=== PATIENT | female | born 1990 | race Caucasian/White ===

== ENCOUNTER 2017-11-05 11:03 | Emergency (ER) | payer OTHER ==
[~2017-11-05] VITALS: Ht 160 cm; Wt 65.8 kg
[~2017-11-05 11:03] MED LIST: ACETAMINOPHEN/O1 TAB PO; ATIVAN1 M1 PO; DILAUDID2 MG PO; ESCITALOPRAM OX10 MG PO; FLOMAX(MONOGRA0.4 MG PO; IBUPROFEN800 M1 PO; MIRENA1 EACH; MULTI VITAMINS1 TAB PO; MULTI-DAY VITA1 EACH PO; PERCOCET 325 MG1 TA2 PO; PERCOCET 5-3251 EACH PO; TORADOL10 MG PO; TRAMADOL50 MG PO; VICODIN5-300 PO; ZOFRAN ODT4 M1 SL
[2017-11-05 12:14] LABS: ABSOLUTE BASOPHIL COUNT 0.1 /CUMM (0.0-0.2); ABSOLUTE EOSINOPHIL COUNT 0 /CUMM (0.0-0.7); ABSOLUTE LYMPH COUNT 0.8 /CUMM (1.2-3.4); ABSOLUTE MONOCYTE COUNT 0.4 /CUMM (0.10-0.60); BASOPHIL % 0.7 % (0.0-2.0); EOSINOPHIL % 0.6 % (0-5); HEMATOCRIT 40.3 % (37-47); MEAN CORPUSCULAR HGB 31.2 PG (27.0-31.0); MEAN CORPUSCULAR HGB CONC 34.2 G/DL (33.0-37.0); MEAN CORPUSCULAR VOLUME 91.2 FL (81.0-99.0); MEAN PLATELET VOLUME 9.4 FL (7.4-10.4); PLATELET COUNT 184 /CUMM (130-400); RBC DISTRIBUTION WIDTH 12.7 % (11.5-14.5); RED BLOOD CELL CT 4.42 /CUMM (4.20-5.40); WHITE BLOOD CELL COUNT 8.3 /CUMM (4.8-10.8)
[2017-11-05 12:35] LABS: GRANULOCYTE % 84.7 % (42.2-75.2)
--- NOTE | 2017-11-05 12:46 | ED GENERAL ADULT ---
History of Present Illness General Chief Complaint: Female Urogenital Problems Stated Complaint: KIDNEY STONE PAIN, X 2 DAYS Source: patient Exam Limitations: no limitations Vital Signs & Intake/Output Vital Signs & Intake/Output Vital Signs Date Time Temp Pulse Resp B/P B/P Pulse O2 O2 Flow FiO2 Mean Ox Delivery Rate 11/05 1850 89 20 133/85 97 Room Air 11/05 1712 97.5 88 19 132/72 99 Room Air 11/05 1530 98.2 87 19 134/82 99 Room Air 11/05 1345 97.0 82 20 135/75 100 Room Air 11/05 1107 96.5 96 18 132/94 98 Room Air Allergies Coded Allergies: NO KNOWN ALLERGIES (01/13/16) Triage Note: PT TO ER C/C LEFT SIDED FLANK PAIN X 1 DAY. HX OF KIDNEY STONES. +NAUSEA. PATIENT OF DR. HUANG (CALLED OFFICE, HE IS IN SURGERY TODAY). DORA FUCHS PTA Triage Nurses Notes Reviewed? yes Onset: Gradual Duration: day(s): : No Patient currently breastfeeds: No HPI: Ms Yates ia a 27 y/o lady with a PMH of nephrolithiasis, 5 previous ESWL's and followed by Dr. Huang, anxiety and depression who presents with complaints of progressive (Erik Flores MD) Reconcile Medications Hydrocodone/Acetaminophen ([place] 5-325 Tablet) 5 MG-325 MG TABLET 1-2 TAB PO Q6 pain Ibuprofen 600 MG TABLET 1 TAB PO Q6P PRN PAIN with food Levonorgestrel (Mirena) 1 EACH IUD CONTROL (Reported) Lorazepam 1 MG TABLET 1 TAB PO BID ANXIETY (Reported) Sertraline HCl 50 MG TABLET 1 TAB PO DAILY MENTAL HEALTH (Reported) (Andressa LIRA,Karen) Past History Travel History Traveled to [place] past 21 day No Medical History Neurological: NONE EENT: NONE Cardiovascular: NONE Respiratory: NONE Gastrointestinal: NONE Hepatic: NONE Renal: KIDNEY STONES Musculoskeletal: NONE Psychiatric: anxiety, depression Endocrine: NONE Blood Disorders: NONE Cancer(s): 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 see below for history Family History Hx Contributory? No (Alfreda LIRA,Terry Carmona) Review of Systems Review of Systems Constitutional: Reports: see HPI. EENTM: Reports: see HPI. Respiratory: Reports: no symptoms. Cardiovascular: Reports: no symptoms. GI: Reports: nausea. Genitourinary: Reports: frequency. Musculoskeletal: Reports: back pain. Skin: Reports: no symptoms. Neurological/Psychological: Reports: no symptoms. (Erik Flores MD) Physical Exam Physical Exam General Appearance: alert, comfortable, mild distress Head: atraumatic, normal appearance Eyes: Bilateral: EOMI. Ears, Nose, Throat: normal ENT inspection Respiratory: normal breath sounds, no respiratory distress, lungs clear Cardiovascular: regular rate/rhythm Gastrointestinal: normal bowel sounds, soft, mild tenderness elicited on palpation of the left lower quadrant Extremities: normal range of motion, no edema Skin: no evidence of bruising or rash on the back Core Measures ACS in differential dx? No CVA/TIA Diagnosis: No Sepsis Present: No Sepsis Focused Exam Completed? No (Erik Flores MD) Progress Differential Diagnoses I considered the following diagnoses in my evaluation of the patient: [ Nephrolithiasis, pyelonephritis, UTI] Plan of Care: Orders Procedure Date/time Status URINE 11/05 111 Complete URINALYSIS 11/05 1115 Complete COMPREHENSIVE METABOLIC PANEL 11/05 111 Complete CBC WITHOUT DIFFERENTIAL 11/05 1115 Complete Current Medications Sig/Arden Start time Last Medication Dose Stop Time Status Admin Lorazepam 1 MG ONE ONE 11/05 1815 CAN (Ativan) 11/05 181 Oxycodone/ 1 TAB ONCE ONE 11/05 181 CAN Acetaminophen 11/05 181 (Percocet) Laboratory Tests 11/05/17 1200: Urine Color YEL, Urine Clarity CLEAR, Urine pH 6.5, Ur Specific [place] 1.010, Urine Protein NEG, Urine Ketones NEG, Urine Nitrite NEG, Urine Bilirubin NEG, Urine Urobilinogen 0.2, Ur Leukocyte Esterase NEG, Ur Microscopic EXAM NOT REQUIRED, Urine Hemoglobin NEG, Urine Glucose NEG, Urine Test NEGATIVE 11/05/17 1054: Anion Gap 13, Estimated GFR > 60, BUN/Creatinine Ratio 20.0, Glucose 88, Calcium 9.5, Total Bilirubin 0.4, AST 19, ALT 37, Alkaline Phosphatase 42, Total Protein 6.8, Albumin 4.5, Globulin 2.3, Albumin/Globulin Ratio 2.0, CBC w Diff NO MAN DIFF REQ, RBC 4.42, MCV 91.2, MCH 31.2 H, RDW 12.7, MPV 9.4, Gran % 84.7 H, Lymphocytes % 9.6 L, Monocytes % 4.4, Eosinophils % 0.6, Basophils % 0.7, Absolute Granulocytes 7.0 H, Absolute Lymphocytes 0.8 L, Absolute Monocytes 0.4, Absolute Eosinophils 0, Absolute Basophils 0.1, PUBS MCHC 34.2 Initial ED EKG: none (Erik Flores MD) Differential Diagnoses I considered the following diagnoses in my evaluation of the patient: Comments: 11/05/2017 4:36:45 PM patient signed out to me by resident and Karen Crisostomo MD. Awaiting ultrasonography evaluation of a possible eccentrically placed IUD. 11/05/2017 6:01:39 PM I have updated on her test results. I'm still awaiting the ultrasound report. 11/05/2017 6:18:40 PM the ultrasound report has not posted to either the ebookpie system or PACs. I have obtained a verbal reading of the report via the radiology coordinator: Malpositioning of iud with inferior displacement into lower uterine segment with suspicion of myometrial perforation of one of the struts. uterus and endomet otherwise unremarkable. benign L o cyst. 11/05/2017 6:45:47 PM I have updated on test results. At the suggestion of Dr. Cadet patient will follow up in their office for treatment of the displaced IUD. We have also discussed the possibility of renal colic. (Alfreda LIRA,Terry Carmona) Departure Departure Condition: Stable Referrals: Sandra LIRA,Petra Carmona (PCP/Family) Departure Forms: Customer Survey General Discharge Information (Erik Flores MD) Departure Disposition: HOME OR SELF CARE Clinical Impression Primary Impression: Flank pain Secondary Impressions: IUD complication Qualifiers: Device complication type: mechanical Mechanical complication type: displacement Encounter type: initial encounter Qualified Code: T83.32XA - Displacement of intrauterine contraceptive device, initial encounter Additional Instructions: Ibuprofen 600 mg every 6 hours as needed for her flank or back pain. You may add [place] if necessary. Contact Dr. Cadet's (DUMPLING MACHINE OPERATOR) office tomorrow and arrange for follow-up appointment regarding your IUD. If treatment of the IUD does not resolve your symptoms, please contact your primary care physician for a follow-up appointment. Return if any concerns or sudden worsening. Please note that there might be incidental findings in your evaluation that are unrelated to the current emergency department visit. Please notify your primary care doctor about this emergency department visit in order to obtain and review all of the testing performed so that these incidental findings can be monitored as needed. If you had an x-ray performed, please understand that some fractures may not be seen on the initial set of x-rays. If your symptoms persist you might need a repeat set of x-rays to check for such a fracture. If you had a laceration evaluated, please understand that foreign bodies such as glass or wood may not be visible to the naked eye or on plain x-rays. If the wound becomes red, swollen, increasingly more painful or if there is any drainage from the wound, please have it reevaluated by a physician for the possibility of a retained foreign body. If you're unable to follow up as outlined in the discharge instructions please return to the emergency department. Thank you for choosing the [facility] Emergency Department for your care. It was a pleasure to serve you today. Terry Gant M.D. [facility] Prescriptions: Current Visit Scripts Ibuprofen 1 TAB PO Q6P PRN PAIN #20 TAB with food Hydrocodone/Acetaminophen ([place] 5-325 Tablet) 1-2 TAB PO Q6 #20 TAB (Alfreda LIRA,Terry Carmona) PA/KNITTED GOODS SHAPER Co-Sign Statement Statement: ED Attending supervision documentation- [] I saw and evaluated the patient. I have also reviewed all the pertinent lab results and diagnostic results. I agree with the findings and the plan of care as documented in the PA's/KNITTED GOODS SHAPER's documentation. [X] I have reviewed the ED Record and agree with the PA's/KNITTED GOODS SHAPER's documentation. [] Additions or exceptions (if any) to the PAs/KNITTED GOODS SHAPER's note and plan are summarized below: [] (Andressa LIRA,Karen) Critical Care Note Critical Care Note Critical Care Time: non-applicable (Alfreda LIRA,Terry Carmona)
[2017-11-05] MEDS ORDERED: SERTRALINE HCL50 MG PO (12:49)
[2017-11-05] MEDS ORDERED: LORAZEPAM1 M1 PO (12:49)
--- NOTE | 2017-11-05 14:48 | CT SCAN REPORT ---
EXAMINATION: CT ABDOMEN AND PELVIS WITHOUT CONTRAST CLINICAL INFORMATION: Left flank pain and urinary frequency. COMPARISON: Renal ultrasound dated 10/12/[address] abdomen and pelvis dated 04/24/2016. TECHNIQUE: Multidetector volumetric imaging was performed from the superior aspect of the liver through the pubic symphysis. Sagittal and coronal reformatted images were obtained on the technologist's workstation. DLP: 302.70 mGy-cm FINDINGS: LUNG BASES: The visualized lung bases are unremarkable. LIVER, GALLBLADDER, AND BILIARY TREE: The liver is normal in size, shape, and attenuation. No focal hepatic lesion or biliary ductal dilatation is present. The gallbladder is unremarkable with no evidence of radiopaque gallstones, gallbladder wall thickening, or obvious pericholecystic inflammatory changes. PANCREAS: Unremarkable. SPLEEN: Unremarkable. ADRENAL GLANDS: Unremarkable. KIDNEYS AND URETERS: The kidneys are normal in size, shape, and attenuation. No hydronephrosis, hydroureter, or calculi seen. No perinephric stranding. BLADDER: Unremarkable. GASTROINTESTINAL TRACT: There is mild diverticulosis, without acute diverticulitis. No bowel obstruction, free intraperitoneal air or abscess is seen. There is no focal bowel wall thickening. The vermiform appendix appears normal. ABDOMINAL WALL: There is a small fat-containing umbilical hernia. LYMPH NODES: Normal. VASCULAR: Unremarkable. PELVIC VISCERA: There is an intrauterine device, somewhat eccentrically positioned within the uterus with proximal distal tips approaching the fundal serosal margin. A 2.0 cm left ovarian cyst is seen. No right adnexal mass is seen. OSSEOUS STRUCTURES: Unremarkable. IMPRESSION: 1. An intrauterine device is somewhat eccentrically positioned within the uterus, as detailed. Consider further evaluation with dedicated pelvic sonography to assess for endometrial position. Consider Gynecology evaluation. 2. There is a small left ovarian cyst which as well could be more fully evaluated with dedicated pelvic sonography, if clinically indicated. 3. There is mild diverticulosis, without acute diverticulitis. 4. No urinary calculus or hydronephroureter is seen bilaterally.
--- NOTE | 2017-11-05 18:17 | ULTRASOUND REPORT ---
EXAMINATION: ULTRASOUND OF THE PELVIS CLINICAL INFORMATION: Left lower abdominal and left flank pain. Malposition of IUD with possible perforation. IUD location close to uterine abdomen CT. Ruled out for nephrolithiasis on CT. COMPARISON: CT scan of the abdomen and pelvis dated 11/05/2017 and 04/24/2016. TECHNIQUE: Transabdominal and transvaginal pelvic ultrasound. A transvaginal study was performed in addition to the transabdominal study which did not yield an adequate examination of the uterus and ovaries due to superimposed distended gas-filled loops of bowel. FINDINGS: Uterus: The uterus is retroverted and retroflexed and normal in size and appearance, measuring 6.3 x 3.8 x 5.6 cm. The endometrial stripe thickness is normal, measuring 0.2 cm in thickness. No focal myometrial mass is seen. There is abnormal low positioning of the intrauterine device seen within the lower uterine segment. As seen on the CT scan, there appears to be malposition of the struts of the IUD with suspicion of perforation into the myometrium. This is, however, difficult to verify given the retroverted and retroflexed positioning of the uterus. The cervical length is normal measuring 2.0 cm. Ovaries: The ovaries bilaterally are visualized and appear normal, with the right ovary measuring 4.1 x 1.7 x 2.9 cm (18 mL volume) and the left ovary measuring 3.7 x 2.5 x 3.5 cm (10.5 mL volume). There is a benign-appearing thin-walled cyst in the left ovary, measuring 2.0 x 1.9 x 1.7 cm. A small amount of free fluid is seen adjacent to the right ovary. Other: No adnexal mass seen. IMPRESSION: 1. Malpositioning of the IUD is seen with inferior displacement into the lower uterine segment and with suspicion of myometrial perforation of one of the struts. 2. Uterus and endometrium otherwise unremarkable. 3. Ovaries bilaterally normal. Benign left ovarian cyst is seen.
[2017-11-05 18:50] VITALS: BP 133/85
[2017-11-05] MEDS ORDERED: NORCO 5-325 TA1 EACH PO (18:50)
[2017-11-05] MEDS ORDERED: IBUPROFEN600 M1 PO (18:50)
== END 2017-11-05 18:58 ==
LOC: ERH 11:03
PROVIDERS: Emergency Medicine
DX: T83.84XA Pain due to genitourinary prosthetic devices, implants and grafts, initial encounter (principal); R10.9 Unspecified abdominal pain; X58.XXXA Exposure to other specified factors, initial encounter; Y93.9 Activity, unspecified; Y92.9 Unspecified place or not applicable
CPT/HCPCS: 74176; 81003; 81025; 96361; 96374; 96375; 96376; J2405

== ENCOUNTER → 2017-11-19 | Day surgery (SDC) | payer OTHER ==
[~2017-11-19] VITALS: Ht 160 cm; Wt 61.2 kg
[~2017-11-19] MED LIST changes: +IBUPROFEN600 M1 PO; +LORAZEPAM1 M1 PO; +MULTIVITAMINS1 EAC9 PO; +NORCO 5-325 TA1 EACH PO; +OXYCODONE-ACET1 EACH PO; +SERTRALINE HCL50 MG PO
--- NOTE | 2017-11-27 07:18 | Operative Report ---
Operative/Inv Procedure Report Surgery Date: 11/19/17 Name of Procedure: left renal eswl/flouroscopy Pre-Operative Diagnosis: Left renal stone with colic Post-Operative Diagnosis: Same Estimated Blood Loss: none Surgeon/Stone Breaker: Giacomo Huang MD Anesthesia: moderate sedation Complications: None Operative/Procedure Note Note: The patient was taken to the operating room and placed on the ESWL table in supine position. With the patient awake, timeout was performed to confirm correct identity, procedure, laterality, anesthesia, and other pertinent santana- operative information. After adequate anesthesia, the patient was positioned so that the patient's left flank was positioned over the table cut-out, overlying the dome of the treatment head. Once the patient was adequately sedated, fluoroscopy, as well as Renal ultrasound was used to locate the LEFT renal stone. Renal US confirmed the presence of the stone which measured it to be approximately 12 mm upper pole stone. The stone was visible with fluoroscopy. Renal US revealed, no hydronephrosis, and no solid tumor, and presence of the stone. The position of the stone was optimized by using fluoroscopy in AP and oblique views;placing the stone within the ESWL c-arm crosshairs. Once the stone's position was optimized , the LEFT renal E.S.W.L. was initiated at low energy level. After noting the patient's tolerance to the shockwaves, the intensitiy was ramped up to maximum level. At the end of the procedure, the left renal stone had dissintegrated. Of note, a total of 2500 shockwaves were delivered to the stone. The patient tolerated the ESWL procedures well, was awakened, then taken to recovery in satisfactory condition via stretcher. The patient was dischared home with pain medications, diet orders, and intructions to catch fragments by straining the urine. The patient to to have follow-up renal ultrasound and KUB in 1 to 2 weeks, prior to follow-up visit in my office. He will then proceed with metabolic stone work-up. Discharge Disposition: Same Day Admissions CC: Giacomo Huang MD
== END ==
LOC: STS 04:36
DX: N20.0 Calculus of kidney (principal); Z87.442 Personal history of urinary calculi
CPT/HCPCS: 81025

== ENCOUNTER 2017-12-06 11:28 | Inpatient (IN) | payer OTHER ==
[~2017-12-06] VITALS: Ht 157.5 cm; Wt 65.3 kg
[~2017-12-06 11:28] MED LIST changes: +CIPRO500 M1 PO
--- NOTE | 2017-12-06 12:12 | ED GENERAL ADULT ---
See Addendum History of Present Illness General Chief Complaint: General Adult Stated Complaint: CALLED BACK BY DR SHI Source: patient Exam Limitations: no limitations Vital Signs & Intake/Output Vital Signs & Intake/Output Vital Signs Date Time Temp Pulse Resp B/P B/P Pulse O2 O2 Flow FiO2 Mean Ox Delivery Rate 12/06 1856 99.0 12/06 1704 100.6 113 18 130/86 98 12/06 1557 101.0 95 18 124/78 100 Room Air 12/06 1556 101.0 12/06 1400 100.3 12/06 1309 99.3 12/06 1157 96.0 119 18 144/91 99 Room Air Allergies Coded Allergies: NO KNOWN ALLERGIES (01/13/16) Reconcile Medications Baclofen 10 MG TABLET 1 TAB PO BID MUSCLE RELAXER (Reported) Ibuprofen 800 MG TABLET 1 TAB PO TID PRN PAIN (Reported) Lorazepam 1 MG TABLET 1 TAB PO BID ANXIETY (Reported) Multiple Vitamin (Multivitamins) 1 EACH TABLET 1 TAB PO DAILY SUPPLEMENT ( Reported) Norethindrone-E.estradiol-Iron (Lo Loestrin Fe 1-10 Tablet) 1MG-10(24) TABLET 1 TAB PO DAILY CONTROL (Reported) Ondansetron (Zofran Odt) 4 MG TAB.RAPDIS 1 TAB SL TID PRN nausea Oxycodone HCl/Acetaminophen (Percocet 5-325 MG Tablet) 5 MG-325 MG TABLET 1 TAB PO BID PRN pain Sertraline HCl 50 MG TABLET 1 TAB PO DAILY MENTAL HEALTH (Reported) Triage Note: SEEN HERE LAST PM FOR A KIDNEY INFECTION, WAS CALLED TO COME BACK BY DR. SHI, STATES PAIN IS WORSE IN LEFT KIDNEY, VOMITED THIS AM AFTER TAKING CIPRO. Triage Nurses Notes Reviewed? yes Onset: Abrupt Duration: day(s): Timing: recent history : No Patient currently breastfeeds: No HPI: 12/06/17 12:25 PM Patient was recalled by me for positive blood culture. She had gram-negative rods growing out in her blood. Old note was appreciated from yesterday. See below: 27-year-old female with history of kidney stones for which she is required multiple lithotripsies in the past presents to ER today for evaluation complaining of severe left flank pain rating to left lower quadrant associated with nausea chills subjective fevers and night sweats over the past 1 week any progressing worse. Patient had her last lithotripsy [address] Huang. She states she was on pain medicine however was not until antibiotics. She reports a severe dysuria and urinary urgency frequency. She denies any vaginal bleeding or discharge. Patient also had her Mirena removed 3 weeks ago by her field operations manager. She denies any other abdominal surgeries. No vomiting diarrhea. She is not taken anything for the pain today she went to urgent care who referred her to the ER She went to an urgent care just prior to arrival she had a negative. For now she denies any coughing sore throat chest pain. Contrary to triage note, pts pain is to the left flank, no right flank pain She was recalled today for positive blood cultures. She is complaining of ongoing fever, chills, and is vomiting up roger antibiotics. Past History Travel History Traveled to [place] past 21 day No Medical History Any Pertinent Medical History? 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 No Review of Systems Review of Systems Constitutional: Reports: chills, fever. EENTM: Reports: no symptoms. Respiratory: Denies: short of breath. Cardiovascular: Denies: chest pain. GI: Reports: vomiting. Denies: abdominal pain. Genitourinary: Reports: see HPI. Musculoskeletal: Reports: back pain. Skin: Reports: no symptoms. Neurological/Psychological: Reports: no symptoms. Hematologic/Endocrine: Reports: no symptoms. Immunologic/Allergic: Reports: no symptoms. Physical Exam Physical Exam General Appearance: well developed/nourished, awake, anxious, mild distress Head: atraumatic, normal appearance Eyes: Bilateral: normal appearance, PERRL, EOMI. Ears, Nose, Throat: normal ENT inspection Neck: normal inspection Respiratory: no respiratory distress Cardiovascular: regular rate/rhythm Gastrointestinal: soft, non-tender Back: CVA tenderness (L) Extremities: normal inspection Neurologic/Psych: no motor/sensory deficits, awake, alert, oriented x 3 Skin: intact, normal color, warm/dry Core Measures ACS in differential dx? No CVA/TIA Diagnosis: No Sepsis Present: No Sepsis Focused Exam Completed? No Progress Differential Diagnoses I considered the following diagnoses in my evaluation of the patient: [ Pyelonephritis, renal colic, bacteremia] Plan of Care: Orders Procedure Date/time Status CBC WITHOUT DIFFERENTIAL 12/07 06 Active BASIC ELECTROLYTES PLUS BUN&CR 12/07 06 Active Heart Healthy Diet 12/06 D Active Vital Signs 12/06 1708 Active Teach/Educate 12/06 170 Active Pain Treatment and Response 12/06 170 Active Nutritional Intake, Monitor 12/06 170 Active Isolation 12/06 170 Active Intake & Output 12/06 1708 Active Patient Care Conference 12/06 1708 Active Activity/Ambulation 12/06 1708 Active Lab Add-on Test 12/06 1506 Active ED Holding Orders 12/06 1457 Active Admit to inpatient 12/06 1457 Active Code Status 12/06 1457 Active Pathway - chart 12/06 1452 Active Pathway - chart 12/06 1451 Active Patient Data 12/06 1451 Active Code Status 12/06 1451 Complete Patient Data 12/06 1414 Active Intake & Output 12/06 1411 Active LACTIC ACID 12/06 1229 Complete Saline Lock 12/06 1136 Active CULTURE,URINE 12/06 1136 Active BLOOD CULTURE 12/06 1136 Active URINALYSIS 12/06 1136 Complete COMPREHENSIVE METABOLIC PANEL 12/06 1136 Complete CBC WITHOUT DIFFERENTIAL 12/06 1136 Complete House Staff 12/06 UNK Active VTE Mechanical Prophylaxis 12/06 UNK Active Vital Signs 12/06 UNK Active EKG 12/06 UNK Active Current Medications Sig/Arden Start time Last Medication Dose Stop Time Status Admin Ceftriaxone Sodium 1,000 MG Q24H 12/07 1400 AC (Rocephin) Baclofen 10 MG BID 12/06 2199 AC (Lioresal 10MG Tablet) Lorazepam 1 MG BID 12/06 2199 AC (Ativan) Multivitamins 1 TAB DAILY 12/06 2001 AC Therapeutic (Theragran-M Vitamins Tabs) Sertraline HCl 50 MG DAILY 12/06 2001 AC (Zoloft) Ondansetron HCl 4 MG Q6P PRN 12/06 1530 AC 12/06 (Zofran) 1927 Sodium Chloride 1,000 ML Q10H 12/06 1515 AC 12/06 (Normal Saline 0.9%) 1555 Acetaminophen 650 MG Q6P PRN 12/06 1500 AC 12/06 (Tylenol) 1556 Ketorolac 15 MG Q6P PRN 12/06 1500 AC 12/06 Tromethamine 12/11 1459 2042 (Toradol) Oxycodone/ 1 TAB Q6P PRN 12/06 1500 AC 12/06 Acetaminophen 1926 (Percocet) Heparin Sodium 5,000 UNIT Q8 12/06 1451 AC (Porcine) Laboratory Tests 12/06/17 1229: Anion Gap 11, Estimated GFR > 60, BUN/Creatinine Ratio 15.7, Glucose 69, Lactic Acid 0.8, Calcium 9.0, Total Bilirubin 1.4 H, AST 37 H, ALT 107 H, Alkaline Phosphatase 127 H, Total Protein 6.4, Albumin 3.8, Globulin 2.6, Albumin/ Globulin Ratio 1.5, CBC w Diff NO MAN DIFF REQ, RBC 4.08 L, MCV 91.8, MCH 30.9, MCHC 33.7, RDW 12.6, MPV 9.5, Gran % 79.4 H, Lymphocytes % 9.8 L, Monocytes % 9.8 H, Eosinophils % 0.8, Basophils % 0.2, Absolute Granulocytes 5.4, Absolute Lymphocytes 0.7 L, Absolute Monocytes 0.7 H, Absolute Eosinophils 0.1, Absolute Basophils 0, Urine Color YEL, Urine Clarity HAZY H, Urine pH 6.0, Ur Specific [place] 1.015, Urine Protein TRACE H, Urine Ketones NEG, Urine Nitrite NEG, Urine Bilirubin NEG, Urine Urobilinogen 1.0, Ur Leukocyte Esterase SMALL H , Ur Microscopic SEDIMENT EXAMINED, Urine RBC 3-5, Urine WBC 5-10 H, Ur Epithelial Cells FEW, Urine Bacteria FEW H, Urine Mucus RARE, Urine Hemoglobin SMALL H, Urine Glucose NEG Microbiology 12/06 1336 BLOOD: Blood Culture - RECD 12/06 1228 URINE ROUT: Urine Culture - RECD 12/06 1228 BLOOD: Blood Culture - RECD Initial ED EKG: none Departure Departure Disposition: STILL A PATIENT Condition: Stable Clinical Impression Primary Impression: Bacteremia Referrals: Sandra LIRA,Petra Carmona (PCP/Family) Departure Forms: Customer Survey General Discharge Information Admission Note Spoke With: Kindra LIRA,Brian Documentation of Exam: Documentation of any treatments & extenuating circumstances including Concerns Regarding Discharge (functional status, medication knowledge or non-compliance, living conditions, etc.) that warrant an admission rather than observation: [The patient needs admission for IV antibiotics, IV pain medication, consider urology consultation] Critical Care Note Critical Care Note Critical Care Time: non-applicable
[2017-12-06 12:42] LABS: ABSOLUTE BASOPHIL COUNT 0 /CUMM (0.0-0.2); ABSOLUTE EOSINOPHIL COUNT 0.1 /CUMM (0.0-0.7); ABSOLUTE GRANULOCYTE CT 5.4 /CUMM (1.4-6.5); ABSOLUTE LYMPH COUNT 0.7 /CUMM (1.2-3.4); ABSOLUTE MONOCYTE COUNT 0.7 /CUMM (0.10-0.60); BASOPHIL % 0.2 % (0.0-2.0); EOSINOPHIL % 0.8 % (0-5); GRANULOCYTE % 79.4 % (42.2-75.2); HEMATOCRIT 37.5 % (37-47); MEAN CORPUSCULAR HGB 30.9 PG (27.0-31.0); MEAN CORPUSCULAR HGB CONC 33.7 G/DL (33.0-37.0); MEAN CORPUSCULAR VOLUME 91.8 FL (81.0-99.0); MEAN PLATELET VOLUME 9.5 FL (7.4-10.4); PLATELET COUNT 167 /CUMM (130-400); RBC DISTRIBUTION WIDTH 12.6 % (11.5-14.5); RED BLOOD CELL CT 4.08 /CUMM (4.20-5.40); WHITE BLOOD CELL COUNT 6.8 /CUMM (4.8-10.8)
--- NOTE | 2017-12-06 14:42 | History & Physical ---
Elba LIRA,Nakita 12/06/17 1441: General Information and HPI MD Statement: I have seen and personally examined ELIZABET STACK and documented this H& P. The patient is a 27 year old F who presented with a patient stated chief complaint of []. Source of Information: patient Exam Limitations: no limitations History of Present Illness: Patient is a 27-year-old female with past medical history significant for nephrolithiasis requiring ECSW X 4 times, preeclampsia, anxiety/depression presented with left flank pain, nausea, vomiting, fever, chills for the past 1 week. On 11/05/2017 patient was found to have intrauterine device displacement to lower uterine segment with suspicion of myometrial perforation, subsequently she underwent removal of the IUD. On 11/19/2017 she underwent extracorporal shockwave lithotripsy for renal stones. A week later she started developing left flank pain for which she was given muscle relaxants. In addition to left flank pain she started developing yellowish orange urine which is foul-smelling associated with burning increased frequency. 2 days ago she woke up in the middle of the night with night sweats and fever followed by chills yesterday which prompted her to come to ER. She was hydrated with fluids, provided with antiemetics and antibiotics followed by discharged from ER. Today her blood cultures cultures grew gram-negative rods and she was requested to come back to ER. Today she was nauseous with significant left flank pain. She reports she took one dose of Cipro so far. She threw up today morning, still nauseous. In addition she started passing stones. 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 Home Who Do You Live With? child Services at Home: None Smoking Status: Former Smoker ETOH Use: occasional use Illicit Drug Use: denies illicit drug use Functional Ability ADLs Independent: dressing, eating, toileting, bathing. Ambulation: independent IADLs Independent: shopping, housework, finances, food prep, telephone, transportation , medication admin. Review of Systems Review of Systems Constitutional: Reports: see HPI, malaise, weakness. EENTM: Reports: see HPI. Cardiovascular: Reports: see HPI. Respiratory: Reports: see HPI. GI: Reports: see HPI. Genitourinary: Reports: see HPI, dysuria, frequency, hematuria, pain. Musculoskeletal: Reports: see HPI. Exam & Diagnostic Data Last 24 Hrs of Vital Signs/I&O Vital Signs Date Time Temp Pulse Resp B/P B/P Pulse O2 O2 Flow FiO2 Mean Ox Delivery Rate 12/06 1400 100.3 12/06 1309 99.3 12/06 1157 96.0 119 18 144/91 99 Room Air Intake & Output 12/06 1600 12/06 0800 12/06 0000 Intake Total 1000 Output Total Balance 1000 Intake, IV 1000 Patient 65.317 kg Weight Physical Exam General Appearance Alert, Oriented X3, Cooperative Skin No Rashes, No Breakdown Skin Temp/Moisture Exam: Warm/Dry HEENT Atraumatic, PERRLA, EOMI Neck Supple Cardiovascular Normal S1, Normal S2 Lungs Clear to Auscultation, Normal Air Movement Abdomen Normal Bowel Sounds, Soft, tenderness in the left lower quadrant, CVA tenderness present bilaterally Neurological Normal Gait, Normal Speech, Strength at 5/5 X4 Ext, Normal Tone, Sensation Intact Extremities No Clubbing, No Cyanosis, No Edema Vascular Normal Pulses, Pulses Symmetrical Body Front and Back (Adult) 1) tenderness on palpation Last 24 Hrs of Labs/Gamaliel: Laboratory Tests 12/06/17 1229: Anion Gap 11, Estimated GFR > 60, BUN/Creatinine Ratio 15.7, Glucose 69, Lactic Acid 0.8, Calcium 9.0, Total Bilirubin 1.4 H, AST 37 H, ALT 107 H, Alkaline Phosphatase 127 H, Total Protein 6.4, Albumin 3.8, Globulin 2.6, Albumin/ Globulin Ratio 1.5, CBC w Diff NO MAN DIFF REQ, RBC 4.08 L, MCV 91.8, MCH 30.9, MCHC 33.7, RDW 12.6, MPV 9.5, Gran % 79.4 H, Lymphocytes % 9.8 L, Monocytes % 9.8 H, Eosinophils % 0.8, Basophils % 0.2, Absolute Granulocytes 5.4, Absolute Lymphocytes 0.7 L, Absolute Monocytes 0.7 H, Absolute Eosinophils 0.1, Absolute Basophils 0, Urine Color YEL, Urine Clarity HAZY H, Urine pH 6.0, Ur Specific [place] 1.015, Urine Protein TRACE H, Urine Ketones NEG, Urine Nitrite NEG, Urine Bilirubin NEG, Urine Urobilinogen 1.0, Ur Leukocyte Esterase SMALL H , Ur Microscopic SEDIMENT EXAMINED, Urine RBC 3-5, Urine WBC 5-10 H, Ur Epithelial Cells FEW, Urine Bacteria FEW H, Urine Mucus RARE, Urine Hemoglobin SMALL H, Urine Glucose NEG Microbiology 12/06 1336 BLOOD: Blood Culture - RECD 12/06 122 URINE ROUT: Urine Culture - RECD 12/06 1228 BLOOD: Blood Culture - RECD Assessment/Plan Assessment: Patient is a 27-year-old female with past medical history significant for nephrolithiasis requiring ECSW X 4 times, preeclampsia, anxiety/depression presented with urinary frequency, urgency, fever, nausea, chills yesterday. Discharged with ciprofloxacin after diagnosed with pyelonephritis. She was asked to return to ER today after being found to have Gram negative bacteremia in blood cultures. VS are significant for MAXIMUM TEMPERATURE of 101, tachycardic (1:15), stable blood pressure saturating on room air. Physical examination did show bilateral CVA tenderness with left lower quadrant tenderness. Labs are remarkable for mild transaminitis AST/ALT 37/107, total bilirubin 1.4, normal white count. UA is hazy with positive leukocyte esterase and white count with few bacteria. Blood cultures did show gram-negative rods. CT imaging is significant for left hydronephrosis with periureteral/perinephric edema without any calculi. Differentials Obstructive uropathy resulting in pyelonephritis Stone breakage in the urinary tract resulting in bacterial leak leading to ascending infection and pyelonephritis Alteration in genitourinary anatomical structures resulting in infection Problem list 1. Pyelonephritis 2. Anxiety/depression Pyelonephritis She is a fairly young 27-year-old female with multiple lithotripsies for recurrent stones with strong family history of nephrolithiasis. Evaluated in the past and found to be calcium oxalate stones which were really difficult to treat. Family history of stones did suggest genetic predisposition. For now the stool might have passed and she needs IV antibiotics for this acute bacteremia. * Started IV ceftriaxone * Aggressive IV hydration * Nausea control with IV Zofran - please monitor QTC * Pain control with IV Toradol, morphine * Follow-up sensitivities * She needs outpatient follow-up for stone evaluation with CMP, uric acid, citrate, 24-hour urine studies, magnesium * Dr. Huang was consulted in the ER and agree with no further interventional procedures. Agreeable with current plan. Anxiety/depression We will continue Zoloft 50 mg daily, lorazepam 1 mg twice a day Patient is currently on Lo Loestrin for control which we will hold during her hospitalization DVT prophylaxis Subcutaneous heparin CODE STATUS Full code As Ranked By This Provider Problem List: 1. Renal colic 2. Flank pain 3. Pyelonephritis 4. Bacteremia Core Measures/Misc (07/14) Acute Coronary Syndrome ACS Diagnosis: No Congestive Heart Failure Congestive Heart Failure Diagnosis No Cerebrovascular Accident CVA/TIA Diagnosis: No VTE (View Protocol) VTE Risk Factors Acute Medical Illness No Mechanical VTE Prophylaxis d/t N/A MechProphylax Ordered No VTE Pharm Prophylaxis d/t NA PharmProphylax ordered Sepsis (View protocol) Sepsis Present: No Resident Review Statement Resident Statement: examined this patient, discussed with university intern, agreed with university intern, discussed with family, reviewed EMR data (avail), discussed with nursing , discussed with case mgmt, reviewed images, amended to note Other Findings: as above Brian Arguelles 12/06/17 1506: Attending MD Review Statement Attending Statement Attending MD Statement: examined this patient, discuss w/resident/PA/EMPLOYEE COMMUNICATIONS SPECIALIST, agreed w/resident/PA/EMPLOYEE COMMUNICATIONS SPECIALIST, discussed with family, reviewed EMR data (avail), discussed with nursing, discussed with case mgmt, reviewed images, amended to note Attending Assessment/Plan: 27 o/f with h/o preclampsia comes with intractable nasuea and vomiting , flank pain and being admitted for pyelonephritis with bacteremia for iv antibiotics and inability to take PO. Patient has Temp 100.3. Labs and vitals noted. Patient recieved fluids in ER. Patient is started on iv fluids, iv antibiotics, prn nausea meds, pain control. Urology consult. GI/DVT prophyalxis full code. Plan of care d/w in ER. Terry Huertas DO 12/06/17 9121: General Information and HPI Allergies/Medications Home Med list Baclofen 10 MG TABLET 1 TAB PO BID MUSCLE RELAXER (Reported) Cephalexin (Keflex) 500 MG CAPSULE 1 CAP PO BID urinary tract infection Ibuprofen 800 MG TABLET 1 TAB PO TID PRN PAIN (Reported) Lorazepam 1 MG TABLET 1 TAB PO BID ANXIETY (Reported) Multiple Vitamin (Multivitamins) 1 EACH TABLET 1 TAB PO DAILY SUPPLEMENT ( Reported) Norethindrone-E.estradiol-Iron (Lo Loestrin Fe 1-10 Tablet) 1MG-10(24) TABLET 1 TAB PO DAILY CONTROL (Reported) Ondansetron (Zofran Odt) 4 MG TAB.RAPDIS 1 TAB SL TID PRN nausea Ondansetron (Zofran Odt) 8 MG TAB.RAPDIS 1 TAB PO TID nausea place on top of the tongue where it will dissolve, then swallow Oxycodone HCl/Acetaminophen (Percocet 5-325 MG Tablet) 5 MG-325 MG TABLET 1 TAB PO Q6P PRN PAIN SCALE 7-10 (SEVERE) Sertraline HCl 50 MG TABLET 1 TAB PO DAILY MENTAL HEALTH (Reported)
[2017-12-06] MEDS ORDERED: TAMSULOSIN HCL0.4 M1 PO (15:15)
[2017-12-06] MEDS ORDERED: LO LOESTRIN FE1 EACH PO (15:15)
[2017-12-06] MEDS ORDERED: BACLOFEN10 M1 PO (15:16)
[2017-12-06] MEDS ORDERED: IBUPROFEN800 M1 PO (15:16)
--- NOTE | 2017-12-06 16:31 | Cons- Urology ---
General Information and HPI Consulting Request Date of Consult: 12/06/17 Requested By: Kindra LIRA,Brian Reason for Consult: left pyelonephritis with severe colic Source of Information: patient, family, old records Exam Limitations: no limitations History of Present Illness: 27 yr old with recurrent renal stones. Recent ESWL one month ago and pt reports passing crystals. pt now with 3 days of colic, severe now with fever, and nausea. CT reviewed with pt. now feels better post ivf, ivabx, and pain meds. no rigor/chill/n/v now. Allergies/Medications Allergies: Coded Allergies: NO KNOWN ALLERGIES (01/13/16) Home Med List: Baclofen 10 MG TABLET 1 TAB PO BID MUSCLE RELAXER (Reported) Ciprofloxacin HCl (Cipro) 500 MG TABLET 1 TAB PO BID pyelo Ibuprofen 800 MG TABLET 1 TAB PO TID PRN PAIN (Reported) Lorazepam 1 MG TABLET 1 TAB PO BID ANXIETY (Reported) Multiple Vitamin (Multivitamins) 1 EACH TABLET 1 TAB PO DAILY SUPPLEMENT ( Reported) Norethindrone-E.estradiol-Iron (Lo Loestrin Fe 1-10 Tablet) 1MG-10(24) TABLET 1 TAB PO DAILY CONTROL (Reported) Ondansetron (Zofran Odt) 4 MG TAB.RAPDIS 1 TAB SL TID PRN nausea Oxycodone HCl/Acetaminophen (Percocet 5-325 MG Tablet) 5 MG-325 MG TABLET 1 TAB PO BID PRN pain Sertraline HCl 50 MG TABLET 1 TAB PO DAILY MENTAL HEALTH (Reported) Tamsulosin HCl 0.4 MG CAP.ER.24H 1 CAP PO DAILY (Reported) Current Medications: Current Medications Sig/Arden Start time Last Medication Dose Route Stop Time Status Admin Acetaminophen 0 .STK-MED ONE 12/06 1552 DC PO Acetaminophen 650 MG Q6P PRN 12/06 1500 AC 12/06 PO 1556 Ceftriaxone Sodium 1,000 MG Q24H 12/07 1400 AC IV Ceftriaxone Sodium 0 .STK-MED ONE 12/06 1355 DC .ROUTE Ceftriaxone Sodium 1,000 MG ONCE ONE 12/06 1230 DC 12/06 IV 12/06 1231 1359 Heparin Sodium 0 .STK-MED ONE 12/06 1552 DC (Porcine) .ROUTE Heparin Sodium 5,000 UNIT Q8 12/06 1451 AC (Porcine) SC Hydromorphone HCl 0 .STK-MED ONE 12/06 1629 DC .ROUTE Hydromorphone HCl 0.6 MG ONCE ONE 12/06 1615 DC IV 12/06 1616 Hydromorphone HCl 0.5 MG ONCE ONE 12/06 1415 DC / IV 12/06 1416 1415 Hydromorphone HCl 0 .STK-MED ONE 12/06 1408 DC .ROUTE Ketorolac 15 MG Q6P PRN 12/06 1500 AC Tromethamine IV 12/11 1459 Ketorolac 30 MG ONCE ONE 12/06 1300 DC 12/06 Tromethamine IV 12/06 1301 1305 Ketorolac 0 .STK-MED ONE 12/06 1300 DC Tromethamine .ROUTE Ondansetron HCl 4 MG Q6P PRN 12/06 1530 AC IV Ondansetron HCl 4 MG ONCE ONE 12/06 1300 DC 12/06 IV 12/06 1301 1305 Ondansetron HCl 0 .STK-MED ONE 12/06 1300 DC .ROUTE Oxycodone/ 1 TAB Q6P PRN 12/06 1500 AC Acetaminophen PO Sodium Chloride 1,000 ML Q10H 12/06 1515 AC 12/06 IV 1555 Sodium Chloride 1,000 ML BOLUS ONE 12/06 1300 DC 12/06 IV 12/06 1459 1305 Past History Medical History Neurological: NONE EENT: NONE Cardiovascular: NONE Respiratory: NONE Gastrointestinal: NONE Hepatic: NONE Renal: KIDNEY STONES Musculoskeletal: NONE Psychiatric: anxiety, depression Endocrine: NONE Blood Disorders: NONE Cancer(s): NONE 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 no Review of Systems Review of Systems Constitutional: Reports: chills, fever. EENTM: Denies: no symptoms. Cardiovascular: Denies: no symptoms. Respiratory: Denies: no symptoms. GI: Reports: abdominal pain, bloating. Genitourinary: Denies: no symptoms. Musculoskeletal: Denies: no symptoms. Skin: Denies: no symptoms. Exam & Diagnostic Data Vital Signs and I&O Vital Signs Date Time Temp Pulse Resp B/P B/P Pulse O2 O2 Flow FiO2 Mean Ox Delivery Rate 12/06 1557 101.0 95 18 124/78 100 Room Air 12/06 1556 101.0 12/06 1400 100.3 12/06 1309 99.3 12/06 1157 96.0 119 18 144/91 99 Room Air Intake & Output 12/06 1600 12/06 0812/06 0000 12/05 1600 12/05 0800 12/05 0000 Intake Total 1000 Output Total Balance 1000 Intake, IV 1000 Patient 144 lb Weight Physical Exam General Appearance: well developed/nourished, mild distress Head: atraumatic Eyes: Bilateral: normal appearance. Respiratory: normal breath sounds Cardiovascular: regular rate/rhythm Gastrointestinal: normal bowel sounds, soft, non-tender Back: CVA tenderness (L) Extremities: normal inspection Neurologic/Psych: no motor/sensory deficits, awake, alert, oriented x 3 Skin: intact, normal color, warm/dry Last 24 Hours of Labs: Laboratory Tests 12/06 1229 Chemistry Sodium (137 - 145 mmol/L) 142 Potassium (3.5 - 5.1 mmol/L) 3.6 Chloride (98 - 107 mmol/L) 105 Carbon Dioxide (22 - 30 mmol/L) 25 Anion Gap (5 - 16) 11 BUN (7 - 17 mg/dL) 11 Creatinine (0.5 - 1.0 mg/dL) 0.7 Estimated GFR (>60 ml/min) > 60 BUN/Creatinine Ratio (7 - 25 %) 15.7 Glucose (65 - 99 mg/dL) 69 Lactic Acid (0.7 - 2.1 mmol/L) 0.8 Calcium (8.4 - 10.2 mg/dL) 9.0 Total Bilirubin (0.2 - 1.3 mg/dL) 1.4 H AST (14 - 36 U/L) 37 H ALT (9 - 52 U/L) 107 H Alkaline Phosphatase (<127 U/L) 127 H Total Protein (6.3 - 8.2 g/dL) 6.4 Albumin (3.5 - 5.0 g/dL) 3.8 Globulin (1.9 - 4.2 gm/dL) 2.6 Albumin/Globulin Ratio (1.1 - 2.2 %) 1.5 Hematology CBC w Diff NO MAN DIFF REQ WBC (4.8 - 10.8 /CUMM) 6.8 RBC (4.20 - 5.40 /CUMM) 4.08 L Hgb (12.0 - 16.0 G/DL) 12.6 Hct (37 - 47 %) 37.5 MCV (81.0 - 99.0 FL) 91.8 MCH (27.0 - 31.0 PG) 30.9 MCHC (33.0 - 37.0 G/DL) 33.7 RDW (11.5 - 14.5 %) 12.6 Plt Count (130 - 400 /CUMM) 167 MPV (7.4 - 10.4 FL) 9.5 Gran % (42.2 - 75.2 %) 79.4 H Lymphocytes % (20.5 - 51.1 %) 9.8 L Monocytes % (1.7 - 9.3 %) 9.8 H Eosinophils % (0 - 5 %) 0.8 Basophils % (0.0 - 2.0 %) 0.2 Absolute Granulocytes (1.4 - 6.5 /CUMM) 5.4 Absolute Lymphocytes (1.2 - 3.4 /CUMM) 0.7 L Absolute Monocytes (0.10 - 0.60 /CUMM) 0.7 H Absolute Eosinophils (0.0 - 0.7 /CUMM) 0.1 Absolute Basophils (0.0 - 0.2 /CUMM) 0 Urines Urine Color (YEL,AMB,STR) YEL Urine Clarity (CLEAR) HAZY H Urine pH (5.0 - 8.0) 6.0 Ur Specific [place] (1.001 - 1.035) 1.015 Urine Protein (NEG,<30 MG/DL) TRACE H Urine Ketones (NEG) NEG Urine Nitrite (NEG) NEG Urine Bilirubin (NEG) NEG Urine Urobilinogen (0.1 - 1.0 EU/dl) 1.0 Ur Leukocyte Esterase (NEG) SMALL H Ur Microscopic SEDIMENT EXAMINED Urine RBC (0 - 5 /HPF) 3-5 Urine WBC (0 - 2 /HPF) 5-10 H Ur Epithelial Cells (NONE,FEW) FEW Urine Bacteria (NEG/NONE) FEW H Urine Mucus (FEW,NONE) RARE Urine Hemoglobin (NEG) SMALL H Urine Glucose (N MG/DL) NEG Imaging Results: PATIENT: ELIZABET STACK PRESENT AGE: 27 PATIENT ACCOUNT NO: [id number] : 88 LOCATION: [facility] ORDERING PHYSICIAN: Leonidas ZHOU SERVICE DATE: 12/05/17 EXAM TYPE: CAT - CT ABD & PELVIS W/O IV CONTRAS EXAMINATION: CT ABDOMEN AND PELVIS WITHOUT CONTRAST CLINICAL INFORMATION: Left flank pain. Fever, nausea and vomiting. COMPARISON: 11/05/2017 TECHNIQUE: Multidetector volumetric imaging was performed from the superior aspect of the liver through the pubic symphysis. Sagittal and coronal reformatted images were obtained on the technologist's workstation. DLP: 276 mGy-cm FINDINGS: LUNG BASES: Again noted are calcified granulomas of the left lower lobe. No acute findings. LIVER, GALLBLADDER, AND BILIARY TREE: Liver has normal size, contour and attenuation. There is normal variation of the left lobe which is elongated and extends into the left upper quadrant. Gallbladder is underdistended. No radiopaque gallstones, gallbladder wall edema or pericholecystic fluid. PANCREAS: Unremarkable. SPLEEN: Unremarkable. ADRENAL GLANDS: Unremarkable. KIDNEYS AND URETERS: Kidneys have normal size, cortical thickness and cortical attenuation. There is a 2 mm calculus of the lower pole of the left kidney. There is mild left hydronephrosis and perinephric/periureteral edema. However, no stones are identified within the left ureter. Probable punctate calculus within the lower pole of the right kidney (image 297, series 3). The right ureter is unremarkable. BLADDER: Unremarkable. GASTROINTESTINAL TRACT: Bowel loops are normal in caliber. The appendix is normal. No evidence of acute inflammation or obstruction along the gastrointestinal tract. No ascites or pneumoperitoneum. ABDOMINAL WALL: Small fat-containing umbilical hernia is unchanged. LYMPH NODES: No pathologic sized lymph nodes in the abdomen or pelvis. VASCULAR: Unremarkable for a noncontrast examination. PELVIC VISCERA: The uterus is retroflexed. Previously noted contraceptive device has been removed. The ovaries appear normal for age. The dominant follicle of the left ovary measures up to 2.3 cm. No pathologic fluid collection within the pelvis. OSSEOUS STRUCTURES: No acute osseous findings. 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 IMPRESSION: 1. Punctate calyceal stones within the lower pole of each kidney. 2. Mild left hydronephrosis with periureteral/perinephric edema. However, there are no calculi identified within the left ureter. Differential considerations would include recently passed ureteral calculus or an ascending urinary tract infection. 3. The uterine contraceptive device observed on 11/05/2017 has been removed. Assessment/Plan Assessment/Plan pt with recently passed left stone; no signficant hydro.,however, with UTI. Recommend IV fluids, IV abx, and pain management. no surgical intervention at this time unless pt worsens with high fevers/tachycardia/hypotension. Copies To: Giacomo Huang MD Consult Acknowledgment - Thank you for your consult request. Attending MD Review Statement Attending Statement Attending MD Statement: examined this patient, discuss w/resident/PA/FRAME FEEDER Attending Assessment/Plan: pt with passed stone: now with residual pain, colic, and pyelonephritis. Tx as noted in A/P
[2017-12-06 17:04] VITALS: BP 130/86
[2017-12-06 21:43] VITALS: BP 130/84
[2017-12-07 06:12] VITALS: BP 124/80
--- NOTE | 2017-12-07 08:22 | PN- Housestaff ---
See Addendum Subjective Follow-up For: Left sided pyelonephritis Gram-negative bacteremia Recurrent nephrolithiasis Subjective: Saw the patient in the morning Reports she is able to tolerate food however had an episode of vomiting. Still had nausea and pain with urination. Reportedly although getting better, not able to tolerate food. Review of Systems Constitutional: Reports: see HPI. Comments: ROS negative except above Objective Last 24 Hrs of Vital Signs/I&O Vital Signs Date Time Temp Pulse Resp B/P B/P Pulse O2 O2 Flow FiO2 Mean Ox Delivery Rate 12/07 0612 100.2 104 20 124/80 96 12/06 2143 99.2 104 18 130/84 91 12/06 1856 99.0 12/06 1704 100.6 113 18 130/86 98 12/06 1557 101.0 95 18 124/78 100 Room Air 12/06 1556 101.0 12/06 1400 100.3 12/06 1309 99.3 12/06 1157 96.0 119 18 144/91 99 Room Air Intake & Output 12/07 1600 12/07 0800 12/07 0000 Intake Total 1150 550 Output Total 650 350 Balance 500 200 Intake, IV 800 300 Intake, Oral 350 250 Output, Urine 650 350 Patient 65.317 kg Weight Weight Reported by Patient Measurement Method Physical Exam General Appearance: Alert, Oriented X3, Cooperative Skin: No Rashes, No Breakdown HEENT: Atraumatic, PERRLA, EOMI Neck: Supple, No JVD Cardiovascular: Normal S1, Normal S2 Lungs: Clear to Auscultation, Normal Air Movement Abdomen: Normal Bowel Sounds, Soft, No Tenderness, CVA tenderness present, left lower quadrant tenderness present Neurological: Normal Gait, Normal Speech, Strength at 5/5 X4 Ext, Normal Tone, Sensation Intact Extremities: No Clubbing, No Cyanosis, No Edema Vascular: Normal Pulses, Pulses Symmetrical Current Medications: Current Medications Sig/Arden Start time Last Medication Dose Route Stop Time Status Admin Acetaminophen 0 .STK-MED ONE 12/06 1552 DC PO Acetaminophen 650 MG Q6P PRN 12/06 1500 AC 12/06 PO 1556 Baclofen 10 MG BID 12/06 2200 AC 12/07 PO 1018 Ceftriaxone Sodium 1,000 MG Q24H 12/07 1400 AC IV Ceftriaxone Sodium 0 .STK-MED ONE 12/06 1355 DC .ROUTE Ceftriaxone Sodium 1,000 MG ONCE ONE 12/06 1230 DC 12/06 IV 12/06 1231 1359 Heparin Sodium 0 .STK-MED ONE 12/06 1552 DC (Porcine) .ROUTE Heparin Sodium 5,000 UNIT Q8 12/06 1451 AC 12/06 (Porcine) SC 2203 Hydromorphone HCl 0 .STK-MED ONE 12/06 1629 DC .ROUTE Hydromorphone HCl 0.6 MG ONCE ONE 12/06 1615 DC 12/06 IV 12/06 1616 1629 Hydromorphone HCl 0.5 MG ONCE ONE 12/06 1415 DC / IV 12/06 1416 1415 Hydromorphone HCl 0 .STK-MED ONE 12/06 1408 DC .ROUTE Ketorolac 15 MG Q6P PRN 12/06 1500 AC 12/06 Tromethamine IV 12/11 1459 2042 Ketorolac 30 MG ONCE ONE 12/06 1300 DC 12/06 Tromethamine IV 12/06 1301 1305 Ketorolac 0 .STK-MED ONE 12/06 1300 DC Tromethamine .ROUTE Lorazepam 1 MG BID 12/06 2200 AC 12/07 PO 1018 Multivitamins 1 TAB DAILY 12/06 2001 AC 12/07 Therapeutic PO 1018 Ondansetron HCl 4 MG Q6P PRN 12/06 1530 AC 12/07 IV 0153 Ondansetron HCl 4 MG ONCE ONE 12/06 1300 DC 12/06 IV 12/06 1301 1305 Ondansetron HCl 0 .STK-MED ONE 12/06 1300 DC .ROUTE Oxycodone/ 1 TAB Q6P PRN 12/06 1500 AC 12/07 Acetaminophen PO 0532 Promethazine HCl 25 MG ONCE ONE 12/07 0515 DC 12/07 IV 12/07 0516 0516 Sertraline HCl 50 MG DAILY 12/06 2001 AC 12/07 PO 1018 Sodium Chloride 1,000 ML Q10H 12/06 1515 AC 12/06 IV 2341 Sodium Chloride 1,000 ML BOLUS ONE 12/06 1300 DC 12/06 IV 12/06 1459 1305 Last 24 Hrs of Lab/Gamaliel Results Last 24 Hrs of Labs/Mics: Laboratory Tests 12/07/17 0715: Anion Gap 9, Estimated GFR > 60, BUN/Creatinine Ratio 10.0, CBC w Diff NO MAN DIFF REQ, RBC 3.54 L, MCV 91.8, MCH 30.8, MCHC 33.5, RDW 12.9, MPV 9.8, Gran % 80.3 H, Lymphocytes % 7.4 L, Monocytes % 11.4 H, Eosinophils % 0.6, Basophils % 0.3, Absolute Granulocytes 6.5, Absolute Lymphocytes 0.6 L, Absolute Monocytes 0.9 H, Absolute Eosinophils 0, Absolute Basophils 0 12/06/17 1229: Anion Gap 11, Estimated GFR > 60, BUN/Creatinine Ratio 15.7, Glucose 69, Lactic Acid 0.8, Calcium 9.0, Total Bilirubin 1.4 H, AST 37 H, ALT 107 H, Alkaline Phosphatase 127 H, Total Protein 6.4, Albumin 3.8, Globulin 2.6, Albumin/ Globulin Ratio 1.5, CBC w Diff NO MAN DIFF REQ, RBC 4.08 L, MCV 91.8, MCH 30.9, MCHC 33.7, RDW 12.6, MPV 9.5, Gran % 79.4 H, Lymphocytes % 9.8 L, Monocytes % 9.8 H, Eosinophils % 0.8, Basophils % 0.2, Absolute Granulocytes 5.4, Absolute Lymphocytes 0.7 L, Absolute Monocytes 0.7 H, Absolute Eosinophils 0.1, Absolute Basophils 0, Urine Color YEL, Urine Clarity HAZY H, Urine pH 6.0, Ur Specific Fajardo 1.015, Urine Protein TRACE H, Urine Ketones NEG, Urine Nitrite NEG, Urine Bilirubin NEG, Urine Urobilinogen 1.0, Ur Leukocyte Esterase SMALL H , Ur Microscopic SEDIMENT EXAMINED, Urine RBC 3-5, Urine WBC 5-10 H, Ur Epithelial Cells FEW, Urine Bacteria FEW H, Urine Mucus RARE, Urine Hemoglobin SMALL H, Urine Glucose NEG Microbiology 12/06 1336 BLOOD: Blood Culture - RECD 12/06 1228 URINE ROUT: Urine Culture - RES 12/06 1228 BLOOD: Blood Culture - RECD Assessment/Plan Assessment: Patient is a 27-year-old female with past medical history significant for nephrolithiasis requiring ECSW X 4 times, preeclampsia, anxiety/depression presented with urinary frequency, urgency, fever, nausea, chills yesterday. Discharged with ciprofloxacin after diagnosed with pyelonephritis was asked to return to ER today after being found to have Gram negative bacteremia in blood cultures. VS are significant for MAXIMUM TEMPERATURE of 101, tachycardic (1:15), stable blood pressure saturating on room air. Physical examination did show bilateral CVA tenderness with left lower quadrant tenderness. Labs are remarkable for mild transaminitis AST/ALT 37/107, total bilirubin 1.4, normal white count. UA is hazy with positive leukocyte esterase and white count with few bacteria. Blood cultures did show gram-negative rods. CT imaging is significant for left hydronephrosis with periureteral/perinephric edema without any calculi. Problem list 1. Pyelonephritis 2. Anxiety/depression Pyelonephritis This is a young 27-year-old female with multiple lithotripsies for recurrent stones with strong family history of nephrolithiasis. Evaluated in the past and found to be calcium oxalate stones which were really difficult to treat. Family history of stones did suggest genetic predisposition. For now she might have passed and she needs IV antibiotics for this acute bacteremia. * continue IV ceftriaxone * Aggressive IV hydration * Nausea control with IV Zofran - please monitor QTC * Pain control with IV Toradol, morphine * Follow-up sensitivities * She needs outpatient follow-up for stone evaluation with CMP, uric acid, citrate, 24-hour urine studies, magnesium * Dr. Huang was consulted in the ER and agree with no further interventional procedures. Agreeable with current plan. Anxiety/depression We will continue Zoloft 50 mg daily, lorazepam 1 mg twice a day Patient is currently on Lo Loestrin for control which we will hold during her hospitalization DVT prophylaxis Subcutaneous heparin CODE STATUS Full code Problem List: 1. Pyelonephritis 2. Bacteremia 3. Flank pain Pain Ratin Pain Location: Left flank pain Pain Goal: Pain 4 or less Pain Plan: Toradol Tomorrow's Labs & Rationales: CBC and BEP
[2017-12-07 08:26] LABS: ABSOLUTE BASOPHIL COUNT 0 /CUMM (0.0-0.2); ABSOLUTE LYMPH COUNT 0.6 /CUMM (1.2-3.4); ABSOLUTE MONOCYTE COUNT 0.9 /CUMM (0.10-0.60)
[2017-12-07 09:03] LABS: ABSOLUTE EOSINOPHIL COUNT 0 /CUMM (0.0-0.7); ABSOLUTE GRANULOCYTE CT 6.5 /CUMM (1.4-6.5); BASOPHIL % 0.3 % (0.0-2.0); EOSINOPHIL % 0.6 % (0-5); GRANULOCYTE % 80.3 % (42.2-75.2); MEAN CORPUSCULAR HGB 30.8 PG (27.0-31.0); MEAN CORPUSCULAR HGB CONC 33.5 G/DL (33.0-37.0); MEAN CORPUSCULAR VOLUME 91.8 FL (81.0-99.0); MEAN PLATELET VOLUME 9.8 FL (7.4-10.4); PLATELET COUNT 171 /CUMM (130-400); RBC DISTRIBUTION WIDTH 12.9 % (11.5-14.5); RED BLOOD CELL CT 3.54 /CUMM (4.20-5.40)
[2017-12-07 09:29] LABS: HEMATOCRIT 32.5 % (37-47)
[2017-12-07 15:01] VITALS: BP 118/70
[2017-12-07 22:45] VITALS: BP 125/79
[2017-12-08 06:21] VITALS: BP 106/64
[2017-12-08 08:02] LABS: ABSOLUTE BASOPHIL COUNT 0 /CUMM (0.0-0.2); ABSOLUTE EOSINOPHIL COUNT 0.2 /CUMM (0.0-0.7); ABSOLUTE GRANULOCYTE CT 5.4 /CUMM (1.4-6.5); ABSOLUTE MONOCYTE COUNT 0.7 /CUMM (0.10-0.60); BASOPHIL % 0.3 % (0.0-2.0); EOSINOPHIL % 2.5 % (0-5); GRANULOCYTE % 74.5 % (42.2-75.2); HEMATOCRIT 32.4 % (37-47); MEAN CORPUSCULAR HGB 30.9 PG (27.0-31.0); MEAN CORPUSCULAR VOLUME 91.1 FL (81.0-99.0); MEAN PLATELET VOLUME 9.1 FL (7.4-10.4); PLATELET COUNT 200 /CUMM (130-400); RED BLOOD CELL CT 3.56 /CUMM (4.20-5.40); WHITE BLOOD CELL COUNT 7.3 /CUMM (4.8-10.8)
--- NOTE | 2017-12-08 08:45 | PN- Housestaff ---
Dipti Morejon MD 12/08/17 0845: Subjective Follow-up For: Pyelonephritis, nephrolithiasis, anxiety Complaints: no complaints Subjective: Patient was seen and examined at bedside. No overnight events. No complaints. Patient denies nausea, vomiting, abdominal pain, loin pain, chest pain, shortness of breath. Review of Systems Constitutional: Reports: no symptoms. Cardiovascular: Reports: no symptoms. Respiratory: Reports: no symptoms. Gastrointestinal: Reports: no symptoms. Genitourinary: Reports: no symptoms. Musculoskeletal: Reports: no symptoms. Objective Last 24 Hrs of Vital Signs/I&O Vital Signs Date Time Temp Pulse Resp B/P B/P Pulse O2 O2 Flow FiO2 Mean Ox Delivery Rate 12/08 0621 99.3 85 20 106/64 93 12/07 2245 98.6 88 20 125/79 97 Room Air 12/07 1501 98.7 99 20 118/70 96 Room Air Intake & Output 12/08 1600 12/08 0800 12/08 0000 Intake Total 1350 550 Output Total 1200 350 Balance 150 200 Intake, IV 800 300 Intake, Oral 550 250 Output, Urine 1200 350 Physical Exam General Appearance: Alert, Oriented X3, Cooperative, No Acute Distress Cardiovascular: Normal S1, Normal S2, No Murmurs Lungs: Clear to Auscultation, Normal Air Movement Abdomen: Soft, No Tenderness, No Hepatospenomegaly, no CVA tenderness. Neurological: Normal Speech, Strength at 5/5 X4 Ext, Normal Tone, Sensation Intact Extremities: No Cyanosis, No Edema, Normal Pulses Vascular: Normal Pulses Current Medications: Current Medications Sig/Arden Start time Last Medication Dose Route Stop Time Status Admin Acetaminophen 650 MG Q6P PRN 12/06 1500 AC 12/06 PO 1556 Baclofen 10 MG BID 12/06 2199 AC 12/08 PO 1015 Ceftriaxone Sodium 1,000 MG Q24H 12/07 1400 AC 12/08 IV 1417 Heparin Sodium 5,000 UNIT Q8 12/06 1451 AC 12/06 (Porcine) SC 2203 Ketorolac 15 MG Q6P PRN 12/06 1500 AC 12/07 Tromethamine IV 12/11 1459 2129 Lactobacillus 1 CAP DAILY 12/08 1000 AC 12/08 Acidophilus PO 102 Lorazepam 1 MG BID 12/060 AC 12/07 PO 2129 Multivitamins 1 TAB DAILY 12/06 2001 AC 12/08 Therapeutic PO 1015 Ondansetron HCl 4 MG .STK-MED ONE 12/08 0341 DC IM 12/08 0342 Ondansetron HCl 4 MG Q6P PRN 12/06 1530 AC 12/08 IV 0342 Oxycodone/ 1 TAB Q6P PRN 12/06 1500 AC 12/08 Acetaminophen PO 1021 Promethazine HCl 25 MG ONCE ONE 12/08 0945 DC IV 12/08 0946 Sertraline HCl 50 MG DAILY 12/06 2001 AC 12/08 PO 1015 Sodium Chloride 1,000 ML Q10H 12/06 1515 AC 12/08 IV 0520 Trimethobenzamide HCl 200 MG ONCE ONE 12/08 0800 DC 12/08 IM 12/08 0801 0817 Last 24 Hrs of Lab/Gamaliel Results Last 24 Hrs of Labs/Mics: Laboratory Tests 12/08/17 0715: Anion Gap 9, Estimated GFR > 60, BUN/Creatinine Ratio 14.3, CBC w Diff NO MAN DIFF REQ, RBC 3.56 L, MCV 91.1, MCH 30.9, MCHC 34.0, RDW 13.0, MPV 9.1, Gran % 74.5, Lymphocytes % 13.6 L, Monocytes % 9.1, Eosinophils % 2.5, Basophils % 0.3 , Absolute Granulocytes 5.4, Absolute Lymphocytes 1.0 L, Absolute Monocytes 0.7 H, Absolute Eosinophils 0.2, Absolute Basophils 0 Assessment/Plan Assessment: Patient is a 27-year-old female with past medical history significant for nephrolithiasis requiring ECSW X 4 times, preeclampsia, anxiety/depression presented with urinary frequency, urgency, fever, nausea, chills yesterday. Discharged with ciprofloxacin after diagnosed with pyelonephritis was asked to return to ER today after being found to have Gram negative bacteremia in blood cultures. Problem list 1. Pyelonephritis 2. Anxiety/depression Pyelonephritis This is a young 27-year-old female with multiple lithotripsies for recurrent stones with strong family history of nephrolithiasis. Evaluated in the past and found to be calcium oxalate stones which were really difficult to treat. Family history of stones did suggest genetic predisposition. For now she might have passed and she needs IV antibiotics for this acute bacteremia. * continue IV ceftriaxone * Aggressive IV hydration * Nausea control with IV Zofran - please monitor QTC * Pain control with IV Toradol, morphine * Cultures negative thus far. * She needs outpatient follow-up for stone evaluation with CMP, uric acid, citrate, 24-hour urine studies, magnesium * Dr. Huang was consulted in the ER and agree with no further interventional procedures. Agreeable with current plan. Anxiety/depression We will continue Zoloft 50 mg daily, lorazepam 1 mg twice a day Patient is currently on Loestrin for control which we will hold during her hospitalization DVT prophylaxis Subcutaneous heparin CODE STATUS Full code Problem List: 1. Pyelonephritis Pain Ratin Pain Location: none Pain Goal: Remain pain free Pain Plan: none Tomorrow's Labs & Rationales: cbc,bep Mary Palafox MD 12/08/17 1429: Attending MD Review Statement Attending Statement Attending MD Statement: examined this patient, discuss w/resident/PA/ADJUSTMENT SUPERVISOR, agreed w/resident/PA/ADJUSTMENT SUPERVISOR, reviewed EMR data (avail), discussed with nursing, discussed with case mgmt, reviewed images, amended to note Attending Assessment/Plan: Patient seen and examined, overall doing better. Back pain has improved. Patient remains afebrile. vss. on exam; aox3, nad. cv; s1,s2, rrr resp; clear abd; soft, nt, bs+ ext; no edema. Laboratory Tests 12/08 0715 Chemistry Sodium (137 - 145 mmol/L) 141 Potassium (3.5 - 5.1 mmol/L) 4.2 Chloride (98 - 107 mmol/L) 109 H Carbon Dioxide (22 - 30 mmol/L) 23 Anion Gap (5 - 16) 9 BUN (7 - 17 mg/dL) 10 Creatinine (0.5 - 1.0 mg/dL) 0.7 Estimated GFR (>60 ml/min) > 60 BUN/Creatinine Ratio (7 - 25 %) 14.3 Hematology CBC w Diff NO MAN DIFF REQ WBC (4.8 - 10.8 /CUMM) 7.3 RBC (4.20 - 5.40 /CUMM) 3.56 L Hgb (12.0 - 16.0 G/DL) 11.0 L Hct (37 - 47 %) 32.4 L MCV (81.0 - 99.0 FL) 91.1 MCH (27.0 - 31.0 PG) 30.9 MCHC (33.0 - 37.0 G/DL) 34.0 RDW (11.5 - 14.5 %) 13.0 Plt Count (130 - 400 /CUMM) 200 MPV (7.4 - 10.4 FL) 9.1 Gran % (42.2 - 75.2 %) 74.5 Lymphocytes % (20.5 - 51.1 %) 13.6 L Monocytes % (1.7 - 9.3 %) 9.1 Eosinophils % (0 - 5 %) 2.5 Basophils % (0.0 - 2.0 %) 0.3 Absolute Granulocytes (1.4 - 6.5 /CUMM) 5.4 Absolute Lymphocytes (1.2 - 3.4 /CUMM) 1.0 L Absolute Monocytes (0.10 - 0.60 /CUMM) 0.7 H Absolute Eosinophils (0.0 - 0.7 /CUMM) 0.2 Absolute Basophils (0.0 - 0.2 /CUMM) 0 A/P;27 y/o F with pmh sig for nephrolithiasis requiring ESWL X 4 times, preeclampsia, anxiety/depression admitted with sepsis secondary to UTI. she had a recent ESWL about a month ago. Patient currently getting treated with ceftriaxone. We'll follow-up on the urine culture and blood culture. Continue antiemetics, and analgesics. Appreciate urology input. Patient on heparin subcutaneous for DVT prophylaxis. Will likely switch to oral antibiotics tomorrow and possible discharge.
[2017-12-08 14:50] VITALS: BP 110/68
[2017-12-08 23:22] VITALS: BP 110/68
[2017-12-09 06:20] VITALS: BP 122/80
--- NOTE | 2017-12-09 07:35 | PN- Housestaff ---
Sandrine LIRA,[place] 12/09/17 0735: Subjective Follow-up For: Pyelonephritis, nephrolithiasis, anxiety Subjective: Patient feeling good today, no complaints. Is stable for discharge. No frequency, hematuria, dysuria. Review of Systems Constitutional: Reports: no symptoms. Objective Last 24 Hrs of Vital Signs/I&O Vital Signs Date Time Temp Pulse Resp B/P B/P Pulse O2 O2 Flow FiO2 Mean Ox Delivery Rate 12/09 0620 98.9 77 18 122/80 98 Room Air 12/08 2322 98.1 89 20 110/68 94 Room Air 12/08 1450 98.8 72 20 110/68 97 Room Air Intake & Output 12/09 1600 12/09 0800 12/09 0000 Intake Total 940 780 Output Total Balance 940 780 Intake, IV 700 300 Intake, Oral 240 480 Physical Exam General Appearance: Alert, Oriented X3, Cooperative, No Acute Distress Skin Temp/Moisture Exam: Warm/Dry HEENT: Atraumatic, EOMI, Mucous Membr. moist/pink Cardiovascular: Regular Rate, Normal S1, Normal S2, No Murmurs Lungs: Clear to Auscultation Abdomen: Normal Bowel Sounds, Soft, No Tenderness Extremities: No Clubbing, No Cyanosis, No Edema, Normal Pulses, No Tenderness/ Swelling Current Medications: Current Medications Sig/Arden Start time Last Medication Dose Route Stop Time Status Admin Acetaminophen 650 MG Q6P PRN 12/06 1500 DCD 12/06 PO 1556 Baclofen 10 MG BID 12/06 2200 DCD 12/09 PO 1128 Ceftriaxone Sodium 1,000 MG Q24H 12/07 1400 DCD 12/08 IV 1417 Heparin Sodium 5,000 UNIT Q8 12/06 1451 DCD 12/06 (Porcine) SC 2203 Ketorolac 30 MG .STK-MED ONE 12/08 1437 DC Tromethamine IM 12/08 1438 Ketorolac 15 MG Q6P PRN 12/06 1500 DCD 12/09 Tromethamine IV 12/11 1459 0737 Lactobacillus 1 CAP DAILY 12/08 1000 DCD 12/09 Acidophilus PO 1128 Lorazepam 1 MG BID 12/06 2200 DCD 12/09 PO 0957 Multivitamins 1 TAB DAILY 12/06 2001 DCD 12/09 Therapeutic PO 0957 Nystatin 5 ML 4 TIMES/DAY 02/12 1000 DCD 12/09 PO 0957 Ondansetron HCl 4 MG .STK-MED ONE 12/08 2042 DC IM 12/08 204 Ondansetron HCl 4 MG .STK-MED ONE 12/08 1432 DC IM 12/08 1433 Ondansetron HCl 4 MG Q6P PRN 12/06 1530 DCD 12/09 IV 0737 Oxycodone/ 1 TAB Q6P PRN 12/06 1500 DCD 12/09 Acetaminophen PO 0553 Sertraline HCl 50 MG DAILY 12/06 2001 DCD 12/09 PO 1128 Sodium Chloride 1,000 ML Q10H 12/06 1515 DC 12/09 IV 0342 Last 24 Hrs of Lab/Gamaliel Results Last 24 Hrs of Labs/Mics: Laboratory Tests 12/09/17 0800: Anion Gap 10, Estimated GFR > 60, BUN/Creatinine Ratio 11.3, Total Bilirubin 0.4 , Direct Bilirubin 0.4, AST 79 H, ALT 136 H, Alkaline Phosphatase 122, Total Protein 5.4 L, Albumin 3.0 L, CBC w Diff NO MAN DIFF REQ, RBC 3.55 L, MCV 91.9, MCH 31.2 H, MCHC 33.9, RDW 12.6, MPV 8.6, Gran % 71.5, Lymphocytes % 16.6 L, Monocytes % 8.9, Eosinophils % 2.7, Basophils % 0.3, Absolute Granulocytes 5.1, Absolute Lymphocytes 1.2, Absolute Monocytes 0.6, Absolute Eosinophils 0.2, Absolute Basophils 0 Assessment/Plan Assessment: Patient is a 27-year-old female with past medical history significant for nephrolithiasis requiring ECSW X 4 times, preeclampsia, anxiety/depression presented with urinary frequency, urgency, fever, nausea, chills yesterday. Discharged with ciprofloxacin after diagnosed with pyelonephritis was asked to return to ER today after being found to have Gram negative bacteremia in blood cultures. Tmax was 101 on 12/06. Physical exam positive for CVA tenderness and LLQ tenderness. CT abd/pelvis without IV contrast showed punctate calyceal stones within the lower pole of each kidney. Additionally, mild left hydronephrosis with periureteral/perinephric edema was seen. However, there are no calculi identified within the left ureter. Differential considerations would include recently passed ureteral calculus or an ascending urinary tract infection. Problem list 1. Pyelonephritis 2. Anxiety/depression Pyelonephritis This is a young 27-year-old female with multiple lithotripsies for recurrent stones with strong family history of nephrolithiasis. Evaluated in the past and found to be calcium oxalate stones which were difficult to treat. Family history of stones did suggest genetic predisposition. For now she most likely has passed stone and she needs IV antibiotics for this acute bacteremia. * Stop IV ceftriaxone and start Keflex 500mg bid for 2 weeks total treatment ( include cipro dose given on previous ER visit) - still needs 10 days worth ( discharge with 20 pills). * Aggressive IV hydration * Nausea control with IV Zofran to be transitioned to ODT for discharge. * Pain control with IV Toradol, morphine to be transitioned to percocet outpatient. * Cultures during this admission negative thus far. Blood culture taken on previous ER visit (which she was given cipro) was positive for GNR bacteremia ECOLI SENSITIVE TO AUGMENTIN. * Dr. Huang was consulted in the ER and agree with no further interventional procedures. Agreeable with current plan. Anxiety/depression We will continue Zoloft 50 mg daily, lorazepam 1 mg twice a day Reproductive Patient is currently on Loestrin for control which we will hold during her hospitalization. IUD placed in early October that was suspected of malpositioning and performation has been removed before her admission here. DVT prophylaxis Subcutaneous heparin CODE STATUS Full code Problem List: 1. Bacteremia 2. Pyelonephritis Pain Ratin Pain Location: none Pain Goal: Remain pain free Pain Plan: na Tomorrow's Labs & Rationales: Brian Mcclendon 12/09/17 1158: Attending MD Review Statement Attending Statement Attending MD Statement: examined this patient, discuss w/resident/PA/LIABILITY CLAIMS EXAMINER, agreed w/resident/PA/LIABILITY CLAIMS EXAMINER, discussed with family, reviewed EMR data (avail), discussed with nursing, discussed with case mgmt, reviewed images, amended to note Attending Assessment/Plan: 27 o/f with h/o preclampsia comes with intractable nasuea and vomiting , flank pain and being admitted for pyelonephritis with bacteremia for iv antibiotics and inability to take PO. Patient clinically improved during the hospital stay. Patient change to PO abx as per C/S, prn nausea meds, pain control. Urology consulted with no acute surgical intervention. Patient is medically stable for discharge. Encourage PO hydration. F/U PCP in 3-5 days of discharge.
[2017-12-09 09:00] LABS: ABSOLUTE BASOPHIL COUNT 0 /CUMM (0.0-0.2); ABSOLUTE EOSINOPHIL COUNT 0.2 /CUMM (0.0-0.7); ABSOLUTE GRANULOCYTE CT 5.1 /CUMM (1.4-6.5); ABSOLUTE LYMPH COUNT 1.2 /CUMM (1.2-3.4); ABSOLUTE MONOCYTE COUNT 0.6 /CUMM (0.10-0.60); BASOPHIL % 0.3 % (0.0-2.0); EOSINOPHIL % 2.7 % (0-5); GRANULOCYTE % 71.5 % (42.2-75.2); HEMATOCRIT 32.7 % (37-47); MEAN CORPUSCULAR HGB 31.2 PG (27.0-31.0); MEAN CORPUSCULAR HGB CONC 33.9 G/DL (33.0-37.0); MEAN CORPUSCULAR VOLUME 91.9 FL (81.0-99.0); MEAN PLATELET VOLUME 8.6 FL (7.4-10.4); PLATELET COUNT 251 /CUMM (130-400); RBC DISTRIBUTION WIDTH 12.6 % (11.5-14.5); RED BLOOD CELL CT 3.55 /CUMM (4.20-5.40); WHITE BLOOD CELL COUNT 7.1 /CUMM (4.8-10.8)
--- NOTE | 2017-12-09 09:25 | Patient Discharge Instructions ---
Discharge Instructions General Discharge Information You were seen/treated for: urinary tract infection Special Instructions: 1. please follow up with your pcp in one week 2. please take full course of antibiotics Diet Continue normal diet: Yes Activity Full Activity/No Limits: Yes Acute Coronary Syndrome Inclusion Criteria At DC or during hospital stay patient has or had the following: ACS DIAGNOSIS No Discharge Core Measures Meds if any: Prescribed or Continued at Discharge Meds if any: NOT Prescribed or Continued at Discharge Congestive Heart Failure Inclusion Criteria At DC or during hospital stay patient has or had the following: CHF DIAGNOSIS No Discharge Core Measures Meds if any: Prescribed or Continued at Discharge Meds if any: NOT Prescribed or Continued at Discharge Cerebrovascular accident Inclusion Criteria At DC or during hospital stay patient has or had the following: CVA/TIA Diagnosis No Discharge Core Measures Meds if any: Prescribed or Continued at Discharge Meds if any: NOT Prescribed or Continued at Discharge Venous thromboembolism Inclusion Criteria VTE Diagnosis No VTE Type NONE VTE Confirmed by (Test) NONE Discharge Core Measures - Per Current guidelines, there needs to be overlap - treatment for the first 5 days of Warfarin therapy. - If discharged on Warfarin prior to 5 days of - overlap therapy, the patient will need to be - assessed for post discharge needs including - *Post discharge parental anticoagulation - *Warfarin and/or parental anticoagulation education - *Follow up date to check INR post discharge At least 5 days overlap therapy as Inpatient No Meds if any: Prescribed or Continued at Discharge Note: Overlap Therapy is Warfarin and Anticoagulant Meds if any: NOT Prescribed or Continued at Discharge
[2017-12-09] MEDS ORDERED: ZOFRAN ODT8 M1 PO (11:37)
[2017-12-09] MEDS ORDERED: KEFLEX500 M1 PO (11:37)
[2017-12-09] MEDS ORDERED: PERCOCET 5-3251 EACH PO ×2 (11:49→12:01)
[2017-12-09] MEDS ORDERED: NYSTATIN100000 UNI PO ×2 (12:39→12:55)
== END 2017-12-09 13:29 | DRG 690 ==
LOC: ERH 11:28 → 2NA 14:57 → ERHI 14:57 → ENRESERV 16:05 → ENTRNSPT 16:21 → EDTRNSPT 16:32 → EDTRNSPTSTS 16:32 → 2NB 16:43 → CMPTRNSPT 16:57 → 2NA 12-09 01:00 → ENPENDDIS 12-09 13:15 → 2NA 12-09 13:29
PROVIDERS: Emergency Medicine; Internal Medicine; Student in an Organized Health Care Education/Training Program
DX: N13.6 Pyonephrosis (principal); F32.9 Major depressive disorder, single episode, unspecified; F41.9 Anxiety disorder, unspecified; Z87.891 Personal history of nicotine dependence
CPT/HCPCS: 2NBSP; 36415; 81001; 82436; 87040; 87086; 93005; 93010; 96374; 96375; J0696; J1644; J1885; J2405; J2550; J3250

== ENCOUNTER 2018-01-27 10:30 | Emergency (ER) | payer OTHER ==
[~2018-01-27] VITALS: Ht 160 cm; Wt 65.8 kg
[~2018-01-27 10:30] MED LIST changes: +BACLOFEN10 M1 PO; +KEFLEX500 M1 PO; +LO LOESTRIN FE1 EACH PO; +NYSTATIN100000 UNI PO; +TAMSULOSIN HCL0.4 M1 PO; +ZOFRAN ODT8 M1 PO
--- NOTE | 2018-01-27 11:20 | ED GI/GU/ABDOMINAL COMPLAINT ---
History of Present Illness General Chief Complaint: Female Urogenital Problems Stated Complaint: ? KIDNEY INFECTION Source: patient Exam Limitations: no limitations Vital Signs & Intake/Output Vital Signs & Intake/Output Vital Signs Date Time Temp Pulse Resp B/P B/P Pulse O2 O2 Flow FiO2 Mean Ox Delivery Rate 01/27 1525 97.6 89 16 136/86 99 Room Air 01/27 1314 Room Air 01/27 1038 97.2 100 22 146/96 100 Room Air Allergies Coded Allergies: NO KNOWN ALLERGIES (01/13/16) Reconcile Medications Lorazepam 1 MG TABLET 1 TAB PO BID ANXIETY (Reported) Multiple Vitamin (Multivitamins) 1 EACH TABLET 1 TAB PO DAILY SUPPLEMENT ( Reported) Norethindrone-E.estradiol-Iron (Lo Loestrin Fe 1-10 Tablet) 1MG-10(24) TABLET 1 TAB PO DAILY CONTROL (Reported) Oxycodone HCl/Acetaminophen (Percocet 5-325 MG Tablet) 5 MG-325 MG TABLET 1-2 TAB PO BID pain Sertraline HCl 50 MG TABLET 1 TAB PO DAILY MENTAL HEALTH (Reported) Triage Note: PT PRESENTS TO THE ER C/O PAIN IN LOWER LEFT FLANK RADIATING TO THE FRONT. PT STATES "WHEN I PEE I FEEL LIKE I STILL HAVE TO GO" PT STATES ONSET SATURDAY AND CALLED DR HUANG WHO SHE SEES SINCE KIDNEY INFECTION 2 MONTHS AGO, PT STATES HE WAS NOT THERE SO SHE WENT TO WALK IN ON SATURDAY BECAUSE HER SYMPTOMS GOT WORSE..WALK IN CALLED PT TODAY AND STATED FOR HER TO COME TO THE ER. PT STATES THEY STATED THAT SHE HAD BACTERIA IN HER URINE. Triage Nurses Notes Reviewed? yes ? n Is pt currently ? No Onset: Abrupt Duration: day(s):, constant Timing: recent history Quality/Severity: moderate, sharpness Location: left flank, left lower quadrant Activities at Onset: none No Modifying Factors: none HPI: 28-year-old female comes into the emergency room with complaints of left flank pain and left lower abdominal pain. Pain began about 4 days ago. Sharp. Wraps around to left lower abdomen. She has a history of kidney stones. She reports some blood in her urine the other day. Increased urgency with urination. Denies any vaginal discharge. Some associated nausea. Denies any fever chills. She had a kidney infection a few months back and had to be admitted to the hospital for IV antibiotics. She was seen at the walk-in clinic yesterday and they found nothing she reports. She comes in for further evaluation. She sees Dr. Huang. (Jamshid Humphreys) Past History Travel History Traveled to [place] past 21 day No Medical History Any Pertinent Medical History? see below for history Neurological: migraine, vertigo EENT: NONE, allergies Cardiovascular: NONE Respiratory: NONE Gastrointestinal: NONE Hepatic: NONE Renal: KIDNEY INFECTION KIDNEY STONES Musculoskeletal: NONE Psychiatric: anxiety, depression Endocrine: NONE Blood Disorders: NONE Cancer(s): NONE POWDER HAND/Reproductive: NONE, PRE-ECLAMPSIA Surgical History Surgical History: , lithotripsy Psychosocial History Who do you live with Family Services at Home None What is your primary language Pashto Tobacco Use: Current Daily Use Daily Tobacco Use Amount/Type: => 5 Cigarettes daily Family History Family History, If Any: SISTER Kidney stones MOTHER Kidney stones Hx Contributory? No (Jamshid Humphreys) Review of Systems Review of Systems Constitutional: Reports: no symptoms. EENTM: Reports: no symptoms. Respiratory: Reports: no symptoms. Cardiovascular: Reports: no symptoms. GI: Reports: see HPI. Genitourinary: Reports: see HPI. Musculoskeletal: Reports: no symptoms. Skin: Reports: no symptoms. Neurological/Psychological: Reports: no symptoms. Hematologic/Endocrine: Reports: no symptoms. Immunologic/Allergic: Reports: no symptoms. All Other Systems: Reviewed and Negative (Jamshid Humphreys) Physical Exam Physical Exam General Appearance: well developed/nourished, alert, awake Head: atraumatic, normal appearance Eyes: Bilateral: normal appearance, EOMI. Ears, Nose, Throat, Mouth: hearing grossly normal, moist mucous membrane Neck: normal inspection Respiratory: normal breath sounds, no respiratory distress Cardiovascular: regular rate/rhythm Gastrointestinal: soft Back: normal inspection Extremities: normal range of motion Neurologic/Psych: awake, alert, oriented x 3, normal gait Skin: intact, normal color Core Measures ACS in differential dx? No Sepsis Present: No Sepsis Focused Exam Completed? No (Jamshid Humphreys) Progress Differential Diagnosis: appendicitis, biliary colic, cholecystitis, diverticulitis, ectopic , kidney stone, ovarian cyst, ovarian torsion Plan of Care: Orders Procedure Date/time Status Add-on Test (ER Only) 01/27 1119 Active LIPASE 01/27 1119 Complete COMPREHENSIVE METABOLIC PANEL 01/27 1119 Complete CBC WITHOUT DIFFERENTIAL 01/27 1119 Complete Add-on Test (ER Only) 01/27 1108 Active CULTURE,URINE 01/27 1038 Active URINE 01/27 1037 Complete URINALYSIS 01/27 1036 Complete Laboratory Tests 01/27/18 1137: Anion Gap 7, Estimated GFR > 60, BUN/Creatinine Ratio 21.7, Glucose 101 H, Calcium 9.7, Total Bilirubin 0.4, AST 20, ALT 41, Alkaline Phosphatase 37, Total Protein 6.5, Albumin 4.0, Globulin 2.5, Albumin/Globulin Ratio 1.6, Lipase 72, CBC w Diff NO MAN DIFF REQ, RBC 4.28, MCV 89.1, MCH 30.9, MCHC 34.6, RDW 12.1, MPV 8.9, Gran % 59.7, Lymphocytes % 30.2, Monocytes % 6.7, Eosinophils % 2.8, Basophils % 0.6, Absolute Granulocytes 2.4, Absolute Lymphocytes 1.2, Absolute Monocytes 0.3, Absolute Eosinophils 0.1, Absolute Basophils 0 01/27/18 1038: Urine Color YEL, Urine Clarity CLEAR, Urine pH 7.0, Ur Specific [place] 1.010, Urine Protein NEG, Urine Ketones NEG, Urine Nitrite NEG, Urine Bilirubin NEG, Urine Urobilinogen 0.2, Ur Leukocyte Esterase NEG, Ur Microscopic EXAM NOT REQUIRED, Urine Hemoglobin NEG, Urine Glucose NEG 01/27/18 1037: Urine Test NEGATIVE Microbiology 01/27 1038 URINE ROUT: Urine Culture - RECD Diagnostic Imaging: Viewed by Me: Ultrasound. Discussed w/RAD: Ultrasound. Radiology Impression: PATIENT: ELIZABET STACK PRESENT AGE: 28 PATIENT ACCOUNT NO: [id number] : 88 LOCATION: [facility] ORDERING PHYSICIAN: Jamshid ZHOU SERVICE DATE: 01/27/18 EXAM TYPE : US - US-TRANSVAGINAL EXAMINATION: US TRANSVAGINAL CLINICAL INFORMATION: Left lower abdominal pain. Evaluate for ovarian cyst or torsion. COMPARISON: 2017. TECHNIQUE: Transabdominal and transvaginal imaging of the pelvis was performed. FINDINGS: The cervical canal is 2.8 cm in length. Nabothian cysts are present. The uterus measures approximately 5.7 cm long x 4.4 cm AP by 5.7 cm transverse. The myometrial echotexture is normal. No uterine leiomyoma. The endometrium is normal, measuring up to 1 cm AP. The ovaries are normal in size and echotexture. Multiple, normal-sized follicles are seen within each ovary. The right ovary measures 3.7 x 2.2 x 3.5 cm, volume of 15 mL. Left ovary measures 3.4 x 2.1 x 3.4 cm, volume of 11.3 mL. Color Doppler images with spectral waveforms show presence of normal arterial flow within each ovary, resistive index of 0.42 on the right and 0.58 on the left. Small, physiologic amount of anechoic free fluid is seen in the pelvic cul-de-sac. IMPRESSION: 1. No evidence of ovarian mass or torsion. 2. Uterus is unremarkable. 3. Small, physiologic amount of free fluid is present within the pelvic cul-de-sac. DICTATED BY: Mateo Patiño MD DATE/TIME DICTATED:01/27/181432 CABLE SPLICER:MESSI DATE/TIME TRANSCRIBED:01/27/181432 CONFIDENTIAL, DO NOT COPY WITHOUT APPROPRIATE AUTHORIZATION. <Electronically signed in Other Vendor System> SIGNED BY: Mateo Patiño MD 01/27/18 1441, PATIENT: ELIZABET STACK PRESENT AGE: 28 PATIENT ACCOUNT NO: [id number] : 88 LOCATION: [facility] ORDERING PHYSICIAN: Jamshid ZHOU SERVICE DATE: 01/27/18 EXAM TYPE: US - US-RENAL/KIDNEY EXAMINATION: US RETROPERITONEAL COMPLETE (RENAL) CLINICAL INFORMATION: Left flank pain and left lower quadrant pain.. COMPARISON: CT images of the abdomen from 12/05/2017. Renal ultrasound from 10/12/2016. TECHNIQUE: Real-time imaging of the kidneys and bladder. FINDINGS: RIGHT KIDNEY: 10.7 x 4.4 x 5.5 cm (SAG x AP x TRV). The kidney has normal cortical thickness and echotexture. No evidence of focal parenchymal lesion, nephrolithiasis or hydronephrosis. LEFT KIDNEY: 10.5 x 5.1 x 4.5 cm (SAG x AP x TRV). The kidney has normal cortical thickness and echotexture. There appears to be a small, 3 mm cortical calcification of the mid left kidney, although no calcification is identified in this area on the recent CT exam of 12/05/2017. Also, there appears to be a small cortical calcification measuring up to 0.5 cm in the upper pole; however, no calcification is seen in this area on 12/05/2017. No calyceal stones are identified. There is mild pelviectasis, similar compared to 12/05/2017. BLADDER: Urinary bladder is distended to an estimated volume of 168 mL. After voiding, there is a negligible residual of 6 mL. No bladder debris, calculi or mucosal mass. Both ureteral jets were seen. IMPRESSION: - Mild pelviectasis/hydronephrosis of the left kidney, similar compared to 12/05/2017, and of uncertain cause. - There appear to be two small foci of cortical calcification of the left kidney. However, no calcifications are identified in these areas on the recent CT exam of 2017. No calyceal stones are detected. If the patient has hematuria and/or unexplained persistent left flank pain, CT urography may be helpful for further evaluation of the urinary tracts. - Urinary bladder is normal. DICTATED BY: Mateo Patiño MD DATE/TIME DICTATED:01/27/181421 CABLE SPLICER:MESSI DATE/TIME TRANSCRIBED:01/27/181421 CONFIDENTIAL, DO NOT COPY WITHOUT APPROPRIATE AUTHORIZATION. <Electronically signed in Other Vendor System> SIGNED BY: Mateo Patiño MD 01/27/18 3876 Initial ED EKG: none (Lambert ZHOU,Jamshid) Departure Departure Disposition: HOME OR SELF CARE Condition: Stable Clinical Impression Primary Impression: Renal colic on left side Referrals: Sandra LIRA,Petra Carmona (PCP/Family) Additional Instructions: Take Percocet for pain. Follow-up with urologist Dr. Huang. Return if any concerns worsening symptoms. Continue taking Flomax. Please go over all results of today's visit with your primary care doctor. Contact your primary care doctor to let them know you were here in the emergency room. There may be nonspecific findings which may not be related to your visit today here in the emergency room but may require further evaluation and chronic monitoring by your primary care doctor. If you had a laceration today the chance of foreign body always remains. You should follow-up with your primary care doctor for recheck in 3-5 days for a wound check. If you had an x-ray done there is a chance that a fracture could have been missed on initial read and you should follow-up with your primary care doctor for repeat x-rays if symptoms persist. If your blood pressure was elevated here in the emergency room please have rechecked by [facility] primary care doctor within the next 48. If you were prescribed a narcotic here in the emergency room or any type of controlled substances you're not allowed to drive while taking this medication or operate any type of heavy machinery. Narcotics can make you feel lightheaded dizziness nausea and can cause constipation. You may need to cotton picker a stool softener. Thank you for choosing [facility] emergency room. Please return to the emergency room immediately if you have any other concerns worsening of symptoms. Departure Forms: Customer Survey General Discharge Information Prescriptions: Current Visit Scripts Oxycodone HCl/Acetaminophen (Percocet 5-325 MG Tablet) 1-2 TAB PO BID #10 TAB Comments 01/27/2018 4:00:41 PM Patient clinically looks well. Patient is in no apparent distress. Patient is nontoxic-appearing. No evidence of pyelonephritis. Pain improved. Follow-up with urologist. (Jamshid Humphreys) PA/[employer] Co-Sign Statement Statement: ED Attending supervision documentation- I saw and evaluated the patient. I have also reviewed all the pertinent lab results and diagnostic results. I agree with the findings and the plan of care as documented in the PA's/[employer]'s documentation. x I have reviewed the ED Record and agree with the PA's/[employer]'s documentation. [] Additions or exceptions (if any) to the PAs/[employer]'s note and plan are summarized below: [] (Liv LIRA,Julien)
[2018-01-27 11:49] LABS: ABSOLUTE BASOPHIL COUNT 0 /CUMM (0.0-0.2); ABSOLUTE EOSINOPHIL COUNT 0.1 /CUMM (0.0-0.7); ABSOLUTE GRANULOCYTE CT 2.4 /CUMM (1.4-6.5); ABSOLUTE LYMPH COUNT 1.2 /CUMM (1.2-3.4); ABSOLUTE MONOCYTE COUNT 0.3 /CUMM (0.10-0.60); BASOPHIL % 0.6 % (0.0-2.0); EOSINOPHIL % 2.8 % (0-5); GRANULOCYTE % 59.7 % (42.2-75.2); HEMATOCRIT 38.2 % (37-47); MEAN CORPUSCULAR HGB 30.9 PG (27.0-31.0); MEAN CORPUSCULAR HGB CONC 34.6 G/DL (33.0-37.0); MEAN CORPUSCULAR VOLUME 89.1 FL (81.0-99.0); MEAN PLATELET VOLUME 8.9 FL (7.4-10.4); PLATELET COUNT 188 /CUMM (130-400); RBC DISTRIBUTION WIDTH 12.1 % (11.5-14.5); RED BLOOD CELL CT 4.28 /CUMM (4.20-5.40); WHITE BLOOD CELL COUNT 4.1 /CUMM (4.8-10.8)
--- NOTE | 2018-01-27 14:36 | ULTRASOUND REPORT ---
EXAMINATION: US RETROPERITONEAL COMPLETE (RENAL) CLINICAL INFORMATION: Left flank pain and left lower quadrant pain.. COMPARISON: CT images of the abdomen from 12/05/2017. Renal ultrasound from 10/12/2016. TECHNIQUE: Real-time imaging of the kidneys and bladder. FINDINGS: RIGHT KIDNEY: 10.7 x 4.4 x 5.5 cm (SAG x AP x TRV). The kidney has normal cortical thickness and echotexture. No evidence of focal parenchymal lesion, nephrolithiasis or hydronephrosis. LEFT KIDNEY: 10.5 x 5.1 x 4.5 cm (SAG x AP x TRV). The kidney has normal cortical thickness and echotexture. There appears to be a small, 3 mm cortical calcification of the mid left kidney, although no calcification is identified in this area on the recent CT exam of 12/05/2017. Also, there appears to be a small cortical calcification measuring up to 0.5 cm in the upper pole; however, no calcification is seen in this area on 12/05/2017. No calyceal stones are identified. There is mild pelviectasis, similar compared to 12/05/2017. BLADDER: Urinary bladder is distended to an estimated volume of 168 mL. After voiding, there is a negligible residual of 6 mL. No bladder debris, calculi or mucosal mass. Both ureteral jets were seen. IMPRESSION: - Mild pelviectasis/hydronephrosis of the left kidney, similar compared to 12/05/2017, and of uncertain cause. - There appear to be two small foci of cortical calcification of the left kidney. However, no calcifications are identified in these areas on the recent CT exam of 12/05/2017. No calyceal stones are detected. If the patient has hematuria and/or unexplained persistent left flank pain, CT urography may be helpful for further evaluation of the urinary tracts. - Urinary bladder is normal.
--- NOTE | 2018-01-27 14:41 | ULTRASOUND REPORT ---
EXAMINATION: US TRANSVAGINAL CLINICAL INFORMATION: Left lower abdominal pain. Evaluate for ovarian cyst or torsion. COMPARISON: 11/05/2017. TECHNIQUE: Transabdominal and transvaginal imaging of the pelvis was performed. FINDINGS: The cervical canal is 2.8 cm in length. Nabothian cysts are present. The uterus measures approximately 5.7 cm long x 4.4 cm AP by 5.7 cm transverse. The myometrial echotexture is normal. No uterine leiomyoma. The endometrium is normal, measuring up to 1 cm AP. The ovaries are normal in size and echotexture. Multiple, normal-sized follicles are seen within each ovary. The right ovary measures 3.7 x 2.2 x 3.5 cm, volume of 15 mL. Left ovary measures 3.4 x 2.1 x 3.4 cm, volume of 11.3 mL. Color Doppler images with spectral waveforms show presence of normal arterial flow within each ovary, resistive index of 0.42 on the right and 0.58 on the left. Small, physiologic amount of anechoic free fluid is seen in the pelvic cul-de-sac. IMPRESSION: 1. No evidence of ovarian mass or torsion. 2. Uterus is unremarkable. 3. Small, physiologic amount of free fluid is present within the pelvic cul-de-sac.
[2018-01-27 15:25] VITALS: BP 136/86
[2018-01-27] MEDS ORDERED: PERCOCET 5-3251 EACH PO (15:25)
== END 2018-01-27 15:27 ==
LOC: ERH 10:30
PROVIDERS: Physician Assistant Medical
DX: N23 Unspecified renal colic (principal); R11.0 Nausea; R31.9 Hematuria, unspecified
CPT/HCPCS: 76775; 81003; 81025; 87086; 96374; 96375; J1885; J2405